=== PATIENT | female | born 1955 | race Two or more races ===

== ENCOUNTER 2022-02-24 18:55 | Emergency (ER) | payer MEDICARE, MEDICAID ==
[~2022-02-24] VITALS: Ht 157.5 cm; Wt 70.3 kg
[2022-02-24 20:17] LABS: Basophils # (auto) 0.1 10 ^3/uL (0-0.2); Basophils % (auto) 2.4 % (0.0-2.0); Eosinophils # (auto) 0.2 10 ^3/uL (0-0.8); Eosinophils % (auto) 2.9 % (0.0-7.0); Hematocrit 32.8 % (36.0-46.0); Hemoglobin 11.3 g/dL (12.2-16.2); Lymphocytes # (auto) 1.6 10 ^3/uL (0.4-5.4); Lymphocytes % (auto) 25.4 % (10.0-50.0); Mean Corpuscular Hemoglobin 31.1 pg (28.0-32.0); Mean Corpuscular Hgb Conc. 34.3 g/dL (32.0-36.0); Mean Corpuscular Volume 90.7 fL (80.0-100.0); Monocytes # (auto) 0.4 10 ^3/uL (0-1.3); Monocytes % (auto) 6.7 % (0.0-12.0); Neutrophils # (auto) 3.9 10 ^3/uL (1.6-8.6); Neutrophils % (auto) 62.6 % (37.0-80.0); Nucleated Red Blood Cells % 0.1 %; Red Blood Cells 3.62 10^6/uL (4.0-5.20); Red Cell Distribution Width 14.6 % (11.8-14.3); White Blood Cell 6.2 10^3/uL (4.4-10.8)
[2022-02-24 20:30] LABS: Albumin 3.8 g/dL (3.4-5.0); Calcium 8.9 mg/dL (8.5-10.1); Potassium 4.1 mmol/L (3.5-5.1)
[2022-02-24 20:33] LABS: BUN/Creatinine Ratio 20.4; Bilirubin, Total 0.7 mg/dL (0.2-1.0); Total Protein 7.8 g/dL (6.4-8.2)
[2022-02-24 20:48] VITALS: BP 149/66
== END 2022-02-25 00:49 | disposition left against medical advice (07) ==
LOC: ER 18:55
DX: R53.1 Weakness (principal); R42 Dizziness and giddiness; M54.50 Low back pain, unspecified; M79.632 Pain in left forearm; M79.631 Pain in right forearm; Z53.21 Procedure and treatment not carried out due to patient leaving prior to being seen by health care provider; W18.39XA Other fall on same level, initial encounter; Y93.89 Activity, other specified; Y92.89 Other specified places as the place of occurrence of the external cause; Y99.8 Other external cause status
CPT/HCPCS: 36415; 80053; 84484; 85025; 93005

== ENCOUNTER 2022-04-08 16:55 | Emergency (ER) | payer MEDICARE, MEDICAID ==
[~2022-04-08] VITALS: Ht 154.9 cm; Wt 54.5 kg
[2022-04-08 18:53] LABS: Basophils # (auto) 0 10 ^3/uL (0-0.2); Basophils % (auto) 0.5 % (0.0-2.0); Eosinophils # (auto) 0.2 10 ^3/uL (0-0.8); Eosinophils % (auto) 2.5 % (0.0-7.0); Hematocrit 34.1 % (36.0-46.0); Hemoglobin 11.1 g/dL (12.2-16.2); Lymphocytes # (auto) 1.8 10 ^3/uL (0.4-5.4); Mean Corpuscular Hemoglobin 29.8 pg (28.0-32.0); Mean Corpuscular Hgb Conc. 32.6 g/dL (32.0-36.0); Mean Corpuscular Volume 91.3 fL (80.0-100.0); Monocytes # (auto) 0.5 10 ^3/uL (0-1.3); Monocytes % (auto) 8.7 % (0.0-12.0); Neutrophils # (auto) 3.6 10 ^3/uL (1.6-8.6); Neutrophils % (auto) 59.3 % (37.0-80.0); Red Blood Cells 3.74 10^6/uL (4.0-5.20); Red Cell Distribution Width 14.6 % (11.8-14.3); White Blood Cell 6.1 10^3/uL (4.4-10.8)
[2022-04-08 18:59] LABS: Urine Bacteria FEW /hpf (None Seen); Urine Blood Negative /uL (Negative); Urine Specific Gravity 1.023 (1.001-1.035); Urine WBC 56 /hpf (0 - 5)
[2022-04-08 19:11] LABS: Albumin 3.7 g/dL (3.4-5.0); Potassium 5.2 mmol/L (3.5-5.1)
[2022-04-08 19:16] LABS: BUN/Creatinine Ratio 24.2; Bilirubin, Total 0.5 mg/dL (0.2-1.0); Total Protein 7.6 g/dL (6.4-8.2)
[2022-04-09 07:58] VITALS: BP 153/96
== END 2022-04-09 08:32 | disposition home or self-care (01) ==
LOC: ER 16:55
DX: R42 Dizziness and giddiness (principal)
CPT/HCPCS: 36415; 80053; 81001; 84443; 84484; 85025; 93005

== ENCOUNTER 2022-11-28 09:10 | Emergency (ER) | payer OTHER, MEDICAID ==
[~2022-11-28] VITALS: Ht 149.9 cm; Wt 55.0 kg
[2022-11-28 09:34] LABS: Basophils # (auto) 0 10 ^3/uL (0-0.2); Basophils % (auto) 0.6 % (0.0-2.0); Eosinophils # (auto) 0.3 10 ^3/uL (0-0.8); Eosinophils % (auto) 5.5 % (0.0-7.0); Hematocrit 39.6 % (36.0-46.0); Hemoglobin 13.3 g/dL (12.2-16.2); Lymphocytes # (auto) 1.4 10 ^3/uL (0.4-5.4); Lymphocytes % (auto) 25.7 % (10.0-50.0); Mean Corpuscular Hemoglobin 29.6 pg (28.0-32.0); Mean Corpuscular Hgb Conc. 33.6 g/dL (32.0-36.0); Mean Corpuscular Volume 88.2 fL (80.0-100.0); Monocytes # (auto) 0.5 10 ^3/uL (0-1.3); Monocytes % (auto) 9.1 % (0.0-12.0); Neutrophils # (auto) 3.3 10 ^3/uL (1.6-8.6); Neutrophils % (auto) 59.1 % (37.0-80.0); Nucleated Red Blood Cells % 0.1 %; Red Blood Cells 4.49 10^6/uL (4.0-5.20); Red Cell Distribution Width 15.9 % (11.8-14.3); White Blood Cell 5.6 10^3/uL (4.4-10.8)
[2022-11-28 09:52] LABS: INR 0.96 (0.9-1.15); Partial Thromboplastin Time 26.7 sec (24.6-33.4)
[2022-11-28 09:58] LABS: Albumin 3.5 g/dL (3.4-5.0); Calcium 8.7 mg/dL (8.5-10.1); Magnesium 2.4 mg/dL (1.6-2.6); Potassium 3.9 mmol/L (3.5-5.1)
[2022-11-28 10:02] LABS: Bilirubin, Total 0.8 mg/dL (0.2-1.0); Total Protein 7.7 g/dL (6.4-8.2)
[2022-11-28] MEDS ORDERED: IOHEXOL 350 MG/ML 100ML IJ ONE (12:30)
[2022-11-28] MEDS ORDERED: AUG875T PO (16:07)
[2022-11-28] MEDS ORDERED: DOXY-286 PO (16:07)
[2022-11-28 16:39] VITALS: BP 147/91
== END 2022-11-28 18:44 | disposition home or self-care (01) ==
LOC: ER 09:10
DX: J18.9 Pneumonia, unspecified organism (principal); R07.2 Precordial pain; I48.91 Unspecified atrial fibrillation; I10 Essential (primary) hypertension; E78.5 Hyperlipidemia, unspecified; E11.9 Type 2 diabetes mellitus without complications; Z20.822 Contact with and (suspected) exposure to COVID-19; Z86.73 Personal history of transient ischemic attack (TIA), and cerebral infarction without residual deficits
CPT/HCPCS: 36415; 71045; 71275; 80053; 83735; 84484; 85025; 85610; 85730; 87426; 93005; 99285; Q9967

== ENCOUNTER 2024-08-14 20:18 | Inpatient (IN) | payer OTHER, MEDICAID ==
[~2024-08-14] VITALS: Ht 149.9 cm; Wt 64.0 kg
[~2024-08-14 20:18] MED LIST: AUG875T PO; DOXY-286 PO
--- NOTE | 2024-08-14 21:08 | ED.PDOC ---
HPI Comments HPI: Poor Historian. 68-year-old female brought in by her daughter for evaluation of a syncope and collapse that happened on . Patient did not seek any medical attention at that time. Patient states she felt dizzy and passed out and fell forward and landed on her face. There was a positive loss of consciousness for at least 15 seconds. Patient did not feel any pain at that time so that she did not seek any medical attention. Patient now complains of some mild posterior cervical neck pain and some weakness and dizziness. Denies any other acute symptoms. Patient is on Plavix and Eliquis. Vitals: Temp: 98.8 F HR: 68 RR: 16 BP: 166/113 02 sat: 96 % on room air PMH: CVA x 3, A-Fib, DM, HTN, HLD PSH: Cholecystectomy Social history: denies tobacco use, denies ETOH use, denies drug use Meds: hydrocodone Allergies: nkda REVIEW OF SYSTEMS: CONSTITUTIONAL: Denies acute: fever, diaphoresis, chills, HEAD: Denies acute: headache, photophobia Eyes: Denies acute: Double vision, vision loss, eye pain, eye discharge. EARS: Denies acute: tinnitus, hearing loss, ear discharge, ear pain, THROAT: Denies acute: sore throat, swelling, difficulty swallowing , pain with swallowing, change in voice. NECK: Denies acute: neck swelling, stiff neck. HEART: Denies acute : chest pain, palpitations, LUNGS: Denies acute: SOB, wheezing, cough, hemoptysis ABDOMEN: Denies acute: abdominal pain, Nausea, Vomiting, diarrhea, melena , hematemesis, hematochezia SKIN: Denies acute: rash, redness, lesions, itchiness. EXTREMITIES: Denies acute: calf pain, numbness, tingling, weakness, denies pain in extremity. Denies acute: Low back pain. Neuro: Denies acute: focal neurological deficit, motor or sensory focal neurological deficit, tremors, seizure like activity, confusion, change in mental status, loss of bowel or bladder function, cauda equina like symptoms. : Denies acute: dysuria, hematuria, flank pain, increase in urinary frequency. PSYCH: Denies acute: hallucination, suicidal ideation, homicidal ideation. FEMALE: Denies acute: abnormal vaginal bleeding, foul odor, unusual discharge. PHYSICAL EXAM: General: no acute distress, awake and alert. Head: normocephalic, noted contusion and bruises in forehead and bilateral cheeks below the eyes. No ha sign. Neck: supple, trachea is midline, no swelling. Cervical spine: Palpation of the posterior midline of the cervical spine reveals no focal swelling, erythema, but some mild nonspecific focal tenderness to palpation. Patient has normal range of motion. Denies associated upper or lower extremity numbness or tingling sensation. Throat: Normal phonation. Eyes:, no erythema, no purulent discharge, no proptosis, no icterus. Heart: regular rate, regular rhythm, no significant murmur appreciated. Lungs: no apparent respiratory distress, Able to speak in full sentences. No wheezing, no rhonchi, no crackles. No stridors Clear to auscultation bilaterally. Abdomen: non tender to palpation, non distended, soft, no guarding, no rebound, + bowel sounds. Neuro: Awake, Alert, oriented to name, self, situation, follows commands GCS=15. Speech is normal. Skin: no petechia, no purpura, no cyanosis, non-pale, not jaundice. Lower extremities: --no - Pitting edema no deformity, no focal swelling, no calf TTP. Makes eye contact. moves all four extremities. Face: no apparent facial droop. PERRLA, EOM-I CN 2-12 are grossly intact, No nystagmus. No nuchal rigidity, Kernig's sign, Brudzinski's sign, no meningeal signs. Chief Complaint: Dizziness Comments Includes but not limited to thyroid disease, encephalopathy, electrolyte abnormality, sepsis, infection, intracranial pathology, drug adverse effects, arrhythmia, kidney insufficiency, ACS, CVA, malignancy, anemia Time Seen by MD: 20:54 Primary Care Provider: unknown Reviewed Notes: Nurses Notes, Medications, Allergies Allergies: Coded Allergies: NO KNOWN ALLERGIES (Unverified , 02/24/22) Home Meds Active Scripts Doxycycline Hyclate (DOXYCYCLINE HYCLATE) 100 Mg Tab, 100 MG PO BID for 10 Days, #20 TAB Prov:FREEMAN CAPELLAN MD 11/28/22 Amoxicillin & Pot Clavulanate (AUGMENTIN TABLET) 875 Mg Tb, 875 MG PO BID for 10 Days, #20 TAB Prov:FREEMAN CAPELLAN MD 11/28/22 Information Source: Patient, Relative Mode of Arrival: Wheelchair Past Medical History PAST MEDICAL HISTORY: AFIB, CVA, DM, High Lipids, HTN 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 Was a procedure done?: No CP Differential Dx Differential Diagnosis: N/A X-Ray, Labs, Meds, VS Vital Signs Date Time Temp Pulse Resp B/P (MAP) Pulse Ox O2 Delivery O2 Flow Rate FiO2 08/14/24 22:44 63 08/14/24 21:23 64 16 167/70 (102) 96 08/14/24 21:10 Room Air* 0 21 08/14/24 20:56 98.8 68 16 166/113 (130) 96 Lab Test 08/14/24 22:42 08/14/24 21:29 Range/Units Troponin I High Sensitivity 23 20 </=34 ng/L White Blood Count 6.1 4.4-10.8 10^3/uL Red Blood Count 4.09 4.0-5.20 10^6/uL Hemoglobin 12.6 12.2-16.2 g/dL Hematocrit 37.2 36.0-46.0 % Mean Corpuscular Volume 91.0 80.0-100.0 fL Mean Corpuscular Hemoglobin 30.8 28.0-32.0 pg Mean Corpuscular Hemoglobin Concent 33.8 32.0-36.0 g/dL Red Cell Distribution Width 15.1 H 11.8-14.3 % Platelet Count 221 140-450 10^3/uL Mean Platelet Volume 8.5 6.9-10.8 fL Neutrophils (%) (Auto) 56.4 37.0-80.0 % Lymphocytes (%) (Auto) 27.6 10.0-50.0 % Monocytes (%) (Auto) 10.2 0.0-12.0 % Eosinophils (%) (Auto) 5.4 0.0-7.0 % Basophils (%) (Auto) 0.4 0.0-2.0 % Neutrophils # (Auto) 3.5 1.6-8.6 10 ^3/uL Lymphocytes # (Auto) 1.7 0.4-5.4 10 ^3/uL Monocytes # (Auto) 0.6 0-1.3 10 ^3/uL Eosinophils # (Auto) 0.3 0-0.8 10 ^3/uL Basophils # (Auto) 0 0-0.2 10 ^3/uL Nucleated Red Blood Cells 0.1 % Prothrombin Time 11.3 9.3-11.8 sec Prothrombin Time INR 1.07 0.9-1.15 Activated Partial Thromboplast Time 30.6 24.5-34.5 SEC Sodium Level 139 136-145 mmol/L Potassium Level 3.6 3.5-5.1 mmol/L Chloride Level 104 98-107 mmol/L Carbon Dioxide Level 28 20-31 mmol/L Anion Gap 7 5-15 Blood Urea Nitrogen 13 9-23 mg/dL Creatinine 1.09 H 0.550-1.02 mg/dL Glomerular Filtration Rate Calc 55 >90 mL/min BUN/Creatinine Ratio 11.9 10.0-20.0 Serum Glucose 201 H 74-106 mg/dL Lactic Acid Level 1.0 0.4-2.0 mmol/L Calcium Level 9.9 8.7-10.4 mg/dL Magnesium Level 2.0 1.6-2.6 mg/dL Total Bilirubin 0.8 0.2-1.0 mg/dL Aspartate Amino Transferase (AST) 26 13-40 U/L Alanine Aminotransferase (ALT) 20 7-40 U/L Alkaline Phosphatase 154 H 46-116 U/L Creatine Kinase 105 34-145 U/L Total Protein 7.5 5.7-8.2 g/dL Albumin 4.0 3.2-4.8 g/dL Current Medications Medications (Trade) Dose Ordered Sig/Ac Route Start Time Stop Time Status Last Admin Labetalol HCl (Labetalol HCl) 5 mg ONCE ONCE IV 08/14/24 21:15 08/14/24 21:16 DC 08/14/24 23:[address] [address] Ph: [phone] DIAGNOSTIC IMAGING Diagnostic Imaging Report : [id number] Signed PATIENT: JHOANA LAI ACCT: [id number] UNIT: [id number] : 1955 LOC: TELE ROOM / BED: [facility] / A AGE / SEX: 68 / F ADM STATUS: ADM IN SERVICE 54 ORDERING PHYSICIAN: CHRISTIAN MACKEY DO PROCEDURE(s): HWOCT - HEAD WITHOUT CONTRAST REASON: syncope and collaps/ head injury ORDER NUMBER(s): [id number], ACCESSION NUMBER(s): [id number] CLINICAL HISTORY: syncope and collaps/ head injury TECHNIQUE: Helical imaging carried out from skull base to vertex without intravenous contrast. This exam was performed according to our departmental dose optimization program. Up-to-date CT equipment and radiation dose reduction techniques are utilized as appropriate. CTDIVol: [CTDIvol] mGy DLP: 886.11 mGy-cm WID: COMPARISON: None FINDINGS: Mild cerebral volume loss with concordant prominence of the subarachnoid spaces and ventricles. There is moderate patchy and confluent white matter hypodensities consistent with nonspecific white matter disease. There are small chronic left cerebellar infarcts. Small chronic infarct in the right occipital lobe Chronic lacunar infarcts in the bilateral caudate bodies, bilateral basal ganglia, and bilateral thalami. There is no midline shift or mass effect. The lindsey white matter interfaces are otherwise maintained. The basal cisterns are patent. There is no evidence of acute intracranial hemorrhage or extra-axial fluid collection. Small left masto id air cell effusion. The right mastoid air cells and visualized paranasal sinuses are well-aerated. Prior ocular lens replacement1 IMPRESSION: 1. Small multifocal contusion/hematomas in the right frontal scalp . 2. No acute intracranial abnormality. 3. Mild cerebral volume loss and moderate chronic microvascular ischemic change. 4. Chronic lacunar infarcts in the bilateral caudate bodies, bilateral basal ganglia and bilateral thalami. 5. Small chronic infarcts in the right occipital lobe and left cerebellum. ATED BY: LENNY GUTIÉRREZ MD DICTATED DATE/TIME: 08/14/242352 SIGNED BY: LENNY GUTIÉRREZ MD SIGNED DATE/TIME: 08/14/242352 CC: [place] [id number] Ph: [phone] DIAGNOSTIC IMAGING Diagnostic Imaging Report : [id number] Signed PATIENT: MING,JHOANA ACCT: [id number] UNIT: [id number] : 1955 LOC: TELE ROOM / BED: [address] [place] [address] AGE / SEX: 68 / F ADM STATUS: ADM IN SERVICE 54 ORDERING PHYSICIAN: CHRISTIAN MACKEY DO PROCEDURE(s): CXRP - CHEST PORTABLE REASON: syncope and collaps/ head injury ORDER NUMBER(s): [id number], ACCESSION NUMBER(s): [id number] EXAM: XY CHEST PORTABLE CLINICAL HISTORY: syncope and collaps/ head injury TECHNIQUE: Single AP view of the chest WID: COMPARISON: XY CHEST PORTABLE on DOS: 11/28/22 FINDINGS: Lines and tubes: None Chest: The heart size and pulmonary vasculature is within normal limits. Calcified plaque projects over the aortic arch. No pleural effusion, pneumothorax, or consolidation. Linear scarring in the left lung base The osseous structures are grossly intact. Multilevel thoracic spondylosis IMPRESSION: No acute cardiopulmonary abnormality. ATED BY: LENNY GUTIÉRREZ MD DICTATED DATE/TIME: 08/14/242349 SIGNED BY: LENNY GUTIÉRREZ MD SIGNED DATE/TIME: 08/14/242349 CC: [place] [id number] Ph: [phone] DIAGNOSTIC IMAGING Diagnostic Imaging Report : [id number] Signed PATIENT: JHOANA LAI ACCT: [id number] UNIT: [id number] : 1955 LOC: TELE ROOM / BED: [address] [place] [address] AGE / SEX: 68 / F ADM STATUS: ADM IN SERVICE 52 ORDERING PHYSICIAN: CHRISTIAN MACKEY DO PROCEDURE(s): CS2 - CERVICAL WITHOUT CONTRAST REASON: syncope and collaps/ head injury ORDER NUMBER(s): [id number], ACCESSION NUMBER(s): [id number] CLINICAL HISTORY: syncope and collaps/ head injury TECHNIQUE: CT exam of the cervical spine was performed without intravenous contrast. This exam was performed according to our departmental dose optimization program. Up-to-date CT equipment and radiation dose reduction techniques are utilized as appropriate. CTDI: [CTDIvol] DLP: 538.45 WID: COMPARISON: None FINDINGS: Patient is edentulous. Normal alignment of the atlantooccipital interval. Atlantoaxial joint is maintained. Alignment is preserved. Vertebral body heights are maintained. There is no acute fracture. No high-grade neural foraminal or spinal stenosis There is a left mastoid air cell effusion. Calcified plaque in the aortic arch. The posterior paraspinal soft tissues are unremarkable. No cervical lymphadenop athy or mass. IMPRESSION: No acute fracture or traumatic malalignment ATED BY: LENNY GUTIÉRREZ MD DICTATED DATE/TIME: 08/15/2414 SIGNED BY: LENNY GUTIÉRREZ MD SIGNED DATE/TIME: 08/15/2414 CC: Time of 1ST Reevaluation: 23:53 (As of this minute, all imaging studies ordered by myself have not been read yet. We checked and we were informed that they images were never sent to the radiologist.) Reevaluation 1ST: Unchanged Patient Education/Counseling: Diagnosis, Treatment Family Education/Counseling: Diagnosis, Treatment Comments Patient presented with the above HPI.---dizziness/ syncope---workup was initiated. patient was found with the above mentioned diagnosis. Patient was given: Labetalol was ordered for hypertension in the setting of suspected head bleed. Patient ED course and VS have been stabilized. Patient has been reassessed in the ED and remained in a stable condition. Pertinent incidental findings were discussed with the patient and/or family. Patient/family voices understanding and is agreeable with plan. Patient has been observed in the ED adequate length of time to insure improvement/stability. patient was admitted to the medicine team for further evaluation and treatment of their presentation. All the reports of any imaging studies that were ordered by myself were reviewed by myself. Departure 1 Departure Time of Disposition: 21:07 Impression: Primary Impression: Syncope and collapse Additional Impressions: Closed head injury Dizziness Disposition: ADMITTED INPATIENT Admit to: [facility] Condition: Guarded Discharged With: Self Critical Care Note Critical Care Time?: Yes (35 min-critical care time only) I personally scribed for CHRISTIAN MACKEY DO ([facility]) on 08/14/24 at 21:59. Electronically submitted by Jin Vieyra ([email or web address]). I personally scribed for CHRISTIAN MACKEY DO ([facility] on 08/14/24 at 23:11. Electronically submitted by David Joseph ([email or web address]). CHRISTIAN MACKEY DO Aug 14, 2024 21:08
[2024-08-14 21:49] LABS: Basophils # (auto) 0 10 ^3/uL (0-0.2); Basophils % (auto) 0.4 % (0.0-2.0); Eosinophils # (auto) 0.3 10 ^3/uL (0-0.8); Eosinophils % (auto) 5.4 % (0.0-7.0); Hematocrit 37.2 % (36.0-46.0); Hemoglobin 12.6 g/dL (12.2-16.2); Lymphocytes # (auto) 1.7 10 ^3/uL (0.4-5.4); Lymphocytes % (auto) 27.6 % (10.0-50.0); Mean Corpuscular Hemoglobin 30.8 pg (28.0-32.0); Mean Corpuscular Hgb Conc. 33.8 g/dL (32.0-36.0); Monocytes # (auto) 0.6 10 ^3/uL (0-1.3); Monocytes % (auto) 10.2 % (0.0-12.0); Neutrophils # (auto) 3.5 10 ^3/uL (1.6-8.6); Neutrophils % (auto) 56.4 % (37.0-80.0); Nucleated Red Blood Cells % 0.1 %; Platelet Count (auto) 221 10^3/uL (140-450); Red Blood Cells 4.09 10^6/uL (4.0-5.20); Red Cell Distribution Width 15.1 % (11.8-14.3); White Blood Cell 6.1 10^3/uL (4.4-10.8)
[2024-08-14 22:03] LABS: INR 1.07 (0.9-1.15); Partial Thromboplastin Time 30.6 SEC (24.5-34.5); Prothrombin Time 11.3 sec (9.3-11.8)
[2024-08-14 22:06] LABS: Alanine Aminotransferase 20 U/L (7-40); Alkaline Phosphatase 154 U/L (46-116); Anion Gap 7 (5-15); Aspartate Aminotransferase 26 U/L (13-40); BUN/Creatinine Ratio 11.9 (10.0-20.0); Bilirubin, Total 0.8 mg/dL (0.2-1.0); Blood Urea Nitrogen 13 mg/dL (9-23); Calcium 9.9 mg/dL (8.7-10.4); Carbon Dioxide 28 mmol/L (20-31); Chloride 104 mmol/L (98-107); Creatine Kinase IFCC 105 U/L (34-145); Glucose 201 mg/dL (74-106); Potassium 3.6 mmol/L (3.5-5.1); Sodium 139 mmol/L (136-145)
[2024-08-14 22:07] LABS: Total Protein 7.5 g/dL (5.7-8.2)
--- NOTE | 2024-08-14 22:53 | DVHHP2 ---
History of Present Illness Reason for Visit: Syncope and collapse History of Present Illness The patient is a 68-year-old female with past medical history of CVA, AFib, DM, hypertension, and hyperlipidemia who presented to [facility] ED for evaluation of syncopal episode. As reported by son, patient had a fall 3 days ago landing on her face without medical attention. Patient sustained facial bruises, felt dizzy, loss of consciousness for at least 15 seconds, getting worse today that prompted this visit. Patient was seen and evaluated in the ED, laboratory data shows WBC 6.1, platelets 221, sodium 139, potassium 3.6, BUN 13, creatinine 1.09, glucose 201, troponin 20, blood pressure 166/113 trending down to 135/64, pulse 68, temperature 98.6 F, O2 saturation 96% on room air. Please see medication orders section in the computer. Head CT revealing small multifocal contusion/hematoma in the right frontal scalp, no acute intracranial abnormality. On my assessment, patient denied chest pain, no headache, no dizziness, no diaphoresis, no shortness of breath, no nausea, no vomiting, no fever, no chills. Patient was admitted for further evaluation and medical management. Past Medical History CVA x 3, A-Fib, DM, HTN, HLD Past Surgical History Cholecystectomy Family History Reviewed, noncontributory to the management of this case. Past Social History The patient lives at home, denies smoking, alcohol or illicit drugs abuse. Review of Systems Constitutional: Yes: Weakness; No: Fever, Chills, Sweats, Malaise, Other Eyes: No: Pain, Vision change, Conjunctivae inflammation, Eyelid inflammation, Other, Redness ENT: No: Ear pain, Ear discharge, Nose pain, Nose discharge, Nose congestion, Mouth pain, Mouth swelling, Throat pain, Throat swelling, Other Respiratory: No: Cough, Dry, Shortness of breath, SOB with excertion, Wheezing, Hemoptysis, Pleuritic Pain, Sputum, Wheezing, Other Cardiovascular: Other (Syncope); No: Chest Pain, Palpitations, Orthopnea, Paroxysmal Noc. Dyspnea, Edema, Lt Headedness Gastrointestinal: No: Nausea, Vomiting, Abdominal Pain, Diarrhea, Constipation, Melena, Hematochezia, Other Genitourinary: No Dysuria, No Frequency, No Incontinence, No Hematuria, No Retention, No Other Musculoskeletal: No: other, neck pain, shoulder pain, arm pain, back pain, hand pain, leg pain, foot pain Skin: No: Rash, Lesions, Jaundice, Bruising, Other Neurological: Other (Contusion/hematoma); No: Weakness, Numbness, Incoordination, Change in speech, Confusion, Seizures Allergies: Coded Allergies: NO KNOWN ALLERGIES (Unverified , 02/24/22) Exam Vital Signs Vital Signs Date Time Temp Pulse Resp B/P (MAP) Pulse Ox O2 Delivery O2 Flow Rate FiO2 08/14/24 20:56 98.8 68 16 166/113 (130) 96 General Appearance: Alert, Oriented X3, Cooperative, No acute distress HEENT: Atraumatic, PERRLA, EOMI, Mucous membr. moist/pink Respiratory: Clear to auscultation, Normal air movement Cardiovascular: Regular rate, Normal S1, Normal S2, No murmurs Abdominal: Normal bowel sounds, Soft, No tenderness, No hepatospenomegaly, No masses Extremities: No clubbing, No cyanosis, No edema, Normal pulses, No tenderness/swelling Skin: No rashes, No breakdown, No significant lesion Neuro: Normal speech, Normal tone, Sensation intact, Cranial nerves 3-12 NL, Reflexes 2+, Other (Generalized weakness) Psych/Mental Status: Mental status NL, Mood NL Labs/Xrays Labs Test 08/14/24 22:42 08/14/24 21:29 Range/Units White Blood Count 6.1 4.4-10.8 10^3/uL Red Blood Count 4.09 4.0-5.20 10^6/uL Hemoglobin 12.6 12.2-16.2 g/dL Hematocrit 37.2 36.0-46.0 % Mean Corpuscular Volume 91.0 80.0-100.0 fL Mean Corpuscular Hemoglobin 30.8 28.0-32.0 pg Mean Corpuscular Hemoglobin Concent 33.8 32.0-36.0 g/dL Red Cell Distribution Width 15.1 H 11.8-14.3 % Platelet Count 221 140-450 10^3/uL Mean Platelet Volume 8.5 6.9-10.8 fL Neutrophils (%) (Auto) 56.4 37.0-80.0 % Lymphocytes (%) (Auto) 27.6 10.0-50.0 % Monocytes (%) (Auto) 10.2 0.0-12.0 % Eosinophils (%) (Auto) 5.4 0.0-7.0 % Basophils (%) (Auto) 0.4 0.0-2.0 % Neutrophils # (Auto) 3.5 1.6-8.6 10 ^3/uL Lymphocytes # (Auto) 1.7 0.4-5.4 10 ^3/uL Monocytes # (Auto) 0.6 0-1.3 10 ^3/uL Eosinophils # (Auto) 0.3 0-0.8 10 ^3/uL Basophils # (Auto) 0 0-0.2 10 ^3/uL Nucleated Red Blood Cells 0.1 % Prothrombin Time 11.3 9.3-11.8 sec Prothrombin Time INR 1.07 0.9-1.15 Activated Partial Thromboplast Time 30.6 24.5-34.5 SEC Sodium Level 139 136-145 mmol/L Potassium Level 3.6 3.5-5.1 mmol/L Chloride Level 104 98-107 mmol/L Carbon Dioxide Level 28 20-31 mmol/L Anion Gap 7 5-15 Blood Urea Nitrogen 13 9-23 mg/dL Creatinine 1.09 H 0.550-1.02 mg/dL Glomerular Filtration Rate Calc 55 >90 mL/min BUN/Creatinine Ratio 11.9 10.0-20.0 Serum Glucose 201 H 74-106 mg/dL Lactic Acid Level 1.0 0.4-2.0 mmol/L Calcium Level 9.9 8.7-10.4 mg/dL Magnesium Level 2.0 1.6-2.6 mg/dL Total Bilirubin 0.8 0.2-1.0 mg/dL Aspartate Amino Transferase (AST) 26 13-40 U/L Alanine Aminotransferase (ALT) 20 7-40 U/L Alkaline Phosphatase 154 H 46-116 U/L Creatine Kinase 105 34-145 U/L Total Protein 7.5 5.7-8.2 g/dL Albumin 4.0 3.2-4.8 g/dL PATIENT: JHOANA LAI ACCT: [id number] UNIT: [id number] : 1955 LOC: [facility] ROOM / BED: [address] [place] [address] AGE / SEX: 68 / F ADM STATUS: ADM IN SERVICE 52 ORDERING PHYSICIAN: CHRISTIAN MACKEY DO PROCEDURE(s): HWOCT - HEAD WITHOUT CONTRAST REASON: syncope and collaps/ head injury ORDER NUMBER(s): [id number], ACCESSION NUMBER(s): [id number] CLINICAL HISTORY: syncope and collaps/ head injury TECHNIQUE: Helical imaging carried out from skull base to vertex without intravenous contrast. This exam was performed according to our departmental dose optimization program. Up-to-date CT equipment and radiation dose reduction techniques are utilized as appropriate. CTDIVol: [CTDIvol] mGy DLP: 886.11 mGy-cm WID: COMPARISON: None FINDINGS: Mild cerebral volume loss with concordant prominence of the subarachnoid spaces and ventricles. There is moderate patchy and confluent white matter hypodensities consistent with nonspecific white matter disease. There are small chronic left cerebellar infarcts. Small chronic infarct in the right occipital lobe Chronic lacunar infarcts in the bilateral caudate bodies, bilateral basal ganglia, and bilateral thalami. There is no midline shift or mass effect. The lindsey white matter interfaces are otherwise maintained. The basal cisterns are patent. There is no evidence of acute intracranial hemorrhage or extra-axial fluid collection. Small left mastoid air cell effusion. The right mastoid air cells and visualized paranasal sinuses are well-aerated. Prior ocular lens replacement1 IMPRESSION: 1. Small multifocal contusion/hematomas in the right frontal scalp. 2. No acute intracranial abnormality. 3. Mild cerebral volume loss and moderate chronic microvascular ischemic change. 4. Chronic lacunar infarcts in the bilateral caudate bodies, bilateral basal ganglia and bilateral thalami. 5. Small chronic infarcts in the right occipital lobe and left cerebellum. ORDERING PHYSICIAN: CHRISTIAN MACKEY DO PROCEDURE(s): CXRP - CHEST PORTABLE REASON: syncope and collaps/ head injury ORDER NUMBER(s): [id number], ACCESSION NUMBER(s): [id number] EXAM: XY CHEST PORTABLE CLINICAL HISTORY: syncope and collaps/ head injury TECHNIQUE: Single AP view of the chest WID: COMPARISON: XY CHEST PORTABLE on DOS: 11/28/22 FINDINGS: Lines and tubes: None Chest: The heart size and pulmonary vasculature is within normal limits. Calcified plaque projects over the aortic arch. No pleural effusion, pneumothorax, or consolidation. Linear scarring in the left lung base The osseous structures are grossly intact. Multilevel thoracic spondylosis IMPRESSION: No acute cardiopulmonary abnormality. ORDERING PHYSICIAN: CHRISTIAN MACKEY DO PROCEDURE(s): CS2 - CERVICAL WITHOUT CONTRAST REASON: syncope and collaps/ head injury ORDER NUMBER(s): [id number], ACCESSION NUMBER(s): [id number] CLINICAL HISTORY: syncope and collaps/ head injury TECHNIQUE: CT exam of the cervical spine was performed without intravenous contrast. This exam was performed according to our departmental dose optimization program. Up-to-date CT equipment and radiation dose reduction techniques are utilized as appropriate. CTDI: [CTDIvol] DLP: 538.45 WID: COMPARISON: None FINDINGS: Patient is edentulous. Normal alignment of the atlantooccipital interval. Atlantoaxial joint is maintained. Alignment is preserved. Vertebral body heights are maintained. There is no acute fracture. No high-grade neural foraminal or s sejal stenosis There is a left mastoid air cell effusion. Calcified plaque in the aortic arch. The posterior paraspinal soft tissues are unremarkable. No cervical lymphadenopathy or mass. IMPRESSION: No acute fracture or traumatic malalignment. Assessment/Plan Assessment/Plan Syncope and collapse Closed head injury Generalized weakness Plan 1. Admit to telemetry unit 2. Breathing treatment 3. Pain control management 4. Management of fluids and electrolytes 5. Consultation for hospitalist/neurology 6. Diagnostic tests head CT 7. DVT prophylaxis on SCDs 8. Repeat labs CBC, CMP in a.m. 9. Continue with current medical management 10. Treatment plan discussed with patient and RN. Patient verbalized understanding. Plan discussed with: Patient, Other (RN) Problem List: (1) Syncope and collapse (2) Closed head injury (3) Generalized weakness Date of Service: Aug 14, 2024 Billing Provider: MAKAYLA GOULD DNP Common Visit Codes: [id number] INP/OBS CARE (HIGH) MAKAYLA GOULD DNP Aug 14, 2024 22:53
[2024-08-14] MEDS ORDERED: HYDROcodone-ACET 5/325MG TAB PO PRN (23:00)
[2024-08-14] MEDS ORDERED: DOCUSATE SOD 100 MG CAP PO PRN (23:00)
[2024-08-14] MEDS ORDERED: MORPHINE SULFATE INJ 2 MG/ml SYRG IV PRN (23:00)
[2024-08-14] MEDS ORDERED: ONDANSETRON HCL 4 MG/2 ML VIAL IV PRN (23:00)
[2024-08-14] MEDS ORDERED: ACETAMINOPHEN 325 MG TAB PO PRN (23:00)
[2024-08-14] MEDS ORDERED: NITROGLYCERIN 0.4 MG SL TAB SL PRN (23:00)
[2024-08-14] MEDS ORDERED: DEXTROSE (50%) 50ML SYRG IV PRN (23:00)
[2024-08-14] MEDS ORDERED: MECLIZINE HCL 25 MG TAB PO PRN (23:00)
[2024-08-14] MEDS: LABETALOL HCL 20 MG/4 ML VL IV ONE (23:39)
--- NOTE | 2024-08-14 23:49 | ECG ---
[facility] Test Date: 2024-08-14 Test Time: 23:41:12 Pat Name: JHOANA LAI Department: ED Room: 0292T Gender: F [employer]/Mechanic: MACRINA : 1955 Requested By: CHRISTIAN MACKEY Order Number: [id number] Reading MD: León Dueñas Measurements Intervals [place] Rate: 62 P: 16 RI: 172 QRS: 3 QRSD: 95 T: 0 QT: 416 QTc: 423 Interpretive Statements Sinus rhythm Low voltage, precordial leads Anteroseptal infarct, old Nonspecific T abnormalities, lateral leads Electronically Signed On 08-16-2024 16:17:00 PST by León Dueñas Please click the below link to view image of tracing.
--- NOTE | 2024-08-14 23:52 | DVH ---
EXAM: XY CHEST PORTABLE CLINICAL HISTORY: syncope and collaps/ head injury TECHNIQUE: Single AP view of the chest WID: COMPARISON: XY CHEST PORTABLE on DOS: 11/28/22 FINDINGS: Lines and tubes: None Chest: The heart size and pulmonary vasculature is within normal limits. Calcified plaque projects over the aortic arch. No pleural effusion, pneumothorax, or consolidation. Linear scarring in the left lung base The osseous structures are grossly intact. Multilevel thoracic spondylosis IMPRESSION: No acute cardiopulmonary abnormality.
--- NOTE | 2024-08-14 23:56 | DVH ---
CLINICAL HISTORY: syncope and collaps/ head injury TECHNIQUE: Helical imaging carried out from skull base to vertex without intravenous contrast. This e xam was performed according to our departmental dose optimization program. Up-to-date CT equipment an d radiation dose reduction techniques are utilized as appropriate. CTDIVol: [CTDIvol] mGy DLP: 886.11 mGy-cm WID: COMPARISON: None FINDINGS: Mild cerebral volume loss with concordant prominence of the subarachnoid spaces and ventricles. There is moderate patchy and confluent white matter hypodensities consistent with nonspecific white matter disease. There are small chronic left cerebellar infarcts. Small chronic infarct in the right occipi tiara lobe Chronic lacunar infarcts in the bilateral caudate bodies, bilateral basal ganglia, and bilat eral thalami. There is no midline shift or mass effect. The lindsey white matter interfaces are otherwise maintained. The basal cisterns are patent. There is no evidence of acute intracranial hemorrhage or extra-axial fluid collection. Small left mastoid air cell effusion. The right mastoid air cells and visualized pa ranasal sinuses are well-aerated. Prior ocular lens replacement1 IMPRESSION: 1. Small multifocal contusion/hematomas in the right frontal scalp . 2. No acute intracranial abnormality. 3. Mild cerebral volume loss and moderate chronic microvascular ischemic change. 4. Chronic lacunar infarcts in the bilateral caudate bodies, bilateral basal ganglia and bilateral th roderick. 5. Small chronic infarcts in the right occipital lobe and left cerebellum.
--- NOTE | 2024-08-15 00:18 | DVH ---
CLINICAL HISTORY: syncope and collaps/ head injury TECHNIQUE: CT exam of the cervical spine was performed without intravenous contrast. This exam was pe rformed according to our departmental dose optimization program. Up-to-date CT equipment and radiatio n dose reduction techniques are utilized as appropriate. CTDI: [CTDIvol] DLP: 538.45 WID: COMPARISON: None FINDINGS: Patient is edentulous. Normal alignment of the atlantooccipital interval. Atlantoaxial joint is maint ained. Alignment is preserved. Vertebral body heights are maintained. There is no acute fracture. N o high-grade neural foraminal or spinal stenosis There is a left mastoid air cell effusion. Calcified plaque in the aortic arch. The posterior paraspi nal soft tissues are unremarkable. No cervical lymphadenopathy or mass. IMPRESSION: No acute fracture or traumatic malalignment
[2024-08-15] MEDS: SODIUM CHLORIDE 0.9% 1,000 ML IV SCH (00:36)
[2024-08-15 04:14] LABS: Urine Bacteria None Seen /hpf (None Seen)
[2024-08-15 05:10] LABS: Urine Blood Negative /uL (Negative); Urine Clarity Clear (Clear); Urine Color Light-Yellow (Yellow); Urine Protein, UAD 2+ (Negative); Urine Specific Gravity 1.015 (1.001-1.035); Urine Urobilinogen Normal (Negative); Urine WBC 15 /hpf (0 - 5); Urine pH 6.5 (5.0-9.0)
[2024-08-15 05:22] LABS: Basophils # (auto) 0 10 ^3/uL (0-0.2); Basophils % (auto) 0.3 % (0.0-2.0); Eosinophils # (auto) 0.3 10 ^3/uL (0-0.8); Eosinophils % (auto) 5.1 % (0.0-7.0); Hematocrit 34.4 % (36.0-46.0); Hemoglobin 11.8 g/dL (12.2-16.2); Lymphocytes # (auto) 1.9 10 ^3/uL (0.4-5.4); Lymphocytes % (auto) 37.6 % (10.0-50.0); Mean Corpuscular Hemoglobin 31.1 pg (28.0-32.0); Mean Corpuscular Hgb Conc. 34.3 g/dL (32.0-36.0); Mean Corpuscular Volume 90.6 fL (80.0-100.0); Monocytes # (auto) 0.5 10 ^3/uL (0-1.3); Monocytes % (auto) 10.4 % (0.0-12.0); Neutrophils # (auto) 2.3 10 ^3/uL (1.6-8.6); Neutrophils % (auto) 46.6 % (37.0-80.0); Nucleated Red Blood Cells % 0.1 %; Platelet Count (auto) 193 10^3/uL (140-450); Red Blood Cells 3.79 10^6/uL (4.0-5.20); Red Cell Distribution Width 14.6 % (11.8-14.3); White Blood Cell 4.9 10^3/uL (4.4-10.8)
[2024-08-15 05:38] LABS: Alanine Aminotransferase 17 U/L (7-40); Albumin 3.4 g/dL (3.2-4.8); Alkaline Phosphatase 118 U/L (46-116); Anion Gap 8 (5-15); Aspartate Aminotransferase 22 U/L (13-40); BUN/Creatinine Ratio 13.5 (10.0-20.0); Bilirubin, Total 0.7 mg/dL (0.2-1.0); Blood Urea Nitrogen 13 mg/dL (9-23); Calcium 9.3 mg/dL (8.7-10.4); Carbon Dioxide 27 mmol/L (20-31); Chloride 107 mmol/L (98-107); Glucose 146 mg/dL (74-106); Potassium 3.4 mmol/L (3.5-5.1); Sodium 142 mmol/L (136-145); Total Protein 6.3 g/dL (5.7-8.2)
[2024-08-15] MEDS: ACCU-CHEK COMFORT CURVE STRIP VI SCH (06:30)
[2024-08-15] MEDS: InsuLIN REG 1unit/0.01ml Soln (100units/ml) SC SCH ×2 (06:32→21:49)
--- NOTE | 2024-08-15 09:01 | DVHINCON2 ---
Date of service: Aug 15, 2024 Referring Physician Betty Reason for Consultation Contusion History of Present Illness This is an urgent consultation Ms. Cameron is a 68 years old right-handed female with a history of hypertension, diabetes, dyslipidemia, atrial fibrillation, multiple strokes, she came to the [facility] on 08/14/2024 with a chief company of syncopal event, at this time, she was alert and fully oriented, she provided the following history with her daughter's interpretation Syncope Onset: 08/10/2024 Positive cause the condition: Unknown Symptoms: When she was standing on 08/10 24, she developed dizziness/spinning sensation, followed by fell down onto her face with loss of consciousness for 2 seconds (her daughter: 15 seconds), and she claims she was conscious to everything on waking up (daughter: She was mentally normal soon after she woke up). She had headache in the affected head area, otherwise denied associated chest pain, nausea, increased sweating. She denied similar events previously Test result: CT head, 08/14/2024: 1. Small multifocal contusion/hematomas in the right frontal scalp . 2. No acute intracranial abnormality. 3. Mild cerebral volume loss and moderate chronic microvascular ischemic change. 4. Chronic lacunar infarcts in the bilateral caudate bodies, bilateral basal ganglia and bilateral thalami. 5. Small chronic infarcts in the right occipital lobe and left cerebellum Multiple strokes Onset: See below Possible cause of the condition: Hypertension, diabetes, dyslipidemia, AFib Symptoms: In 2007, she developed spinning sensation and bilateral occipital headache, the patient was seen in the local hospital and she was said to have stroke, the patient was recommended to take aspirin on discharge In [id number], she had left arm weakness, the patient was seen in the local hospital and was said to have stroke In 2014, she developed bilateral occipital headache, the patient was seen in the local hospital and was said to have stroke. After the stroke in 2014, the patient was has left-sided weakness Previous evaluation: See above. She sees Luis Alberto Chahal, a local neurologist Treatment: Aspirin 325 mg daily (hold by the family), Plavix 75 mg daily, Eliquis 5 mg b.i.d. Previous treatment: Aspirin 81 mg daily, Plavix 75 mg daily, Eliquis 5 mg daily Brain aneurysm Onset: 10/2023 Possible cause the condition: Unknown Symptoms: Asymptomatic. But because of the left-sided weakness after 3rd stroke, Dr. 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 The aspirin was increased from 81 mg daily to prevent blood clot from happening), Plavix 75 mg daily, Eliquis 5 mg b.i.d. Urinalysis, 08/15/2024: WBC: 15, urine leukocyte esterase: Trace CBC, 08/14/2024: Unremarkable CMP, 08/15/2024: Unremarkable CT head, 08/14/2024: 1. Small multifocal contusion/hematomas in the right frontal scalp . 2. No acute intracranial abnormality. 3. Mild cerebral volume loss and moderate chronic microvascular ischemic change. 4. Chronic lacunar infarcts in the bilateral caudate bodies, bilateral basal ganglia and bilateral thalami. 5. Small chronic infarcts in the right occipital lobe and left cerebellum CT C-spine, 08/14/2024: No acute fracture or traumatic malalignment Past Medical History Hypertension, dyslipidemia, diabetes, atrial fibrillation (diagnosed in - 2020), multiple strokes Past Surgical History Cholecystectomy, stent to the right neck Family History Hypertension, diabetes Social History She was a non-smoker. She was no history of alcohol or recreational substance abuse Allergies: Coded Allergies: NO KNOWN ALLERGIES (Unverified , 02/24/22) Home Meds Active Scripts Doxycycline Hyclate (DOXYCYCLINE HYCLATE) 100 Mg Tab, 100 MG PO BID for 10 Days, #20 TAB Prov:FREEMAN CAPELLAN MD 11/28/22 Amoxicillin & Pot Clavulanate (AUGMENTIN TABLET) 875 Mg Tb, 875 MG PO BID for 10 Days, #20 TAB Prov:FREEMAN CAPELLAN MD 11/28/22 Current Medications Current Medications Medications (Trade) Dose Ordered Sig/Ac Route PRN Reason Start Time Stop Time Status Last Admin Lisinopril (Zestril Tablet) 2.5 mg DAILY PO 08/15/24 10:00 Amlodipine Besylate (Norvasc Tablet) 5 mg DAILY PO 08/15/24 10:00 Aspirin 81 mg DAILY PO 08/15/24 10:00 Hydralazine HCl (Apresoline Injection) 10 mg Q6HP PRN IV SBP>150 08/14/24 23:00 Meclizine HCl (Antivert Tablet) 25 mg [id number] PRN PO DIZZINESS 08/14/24 23:00 Diagnostic Test (Pha) (Accu-Chek Comfort Curve T) 1 strip ACHS 08/15/24 07:00 08/15/24 06:30 Insulin Human Regular (InsuLIN R) HS SC 08/15/24 22:00 Insulin Human Regular (InsuLIN R) AC SC 08/15/24 07:00 08/15/24 06:32 Dextrose 50 ml UD PRN IV Blood Sugar LESS THAN 60 08/14/24 23:00 Sodium Chloride 1,000 ml @ 60 mls/hr [id number] IV 08/14/24 23:00 08/15/24 00:36 Acetaminophen/ Hydrocodone Bitart ([place] 5/325MG Tab) 1 tab Q4HP PRN PO MODERATE PAIN (4-6 PAIN SCALE) 08/14/24 23:00 Ondansetron HCl (Zofran) 4 mg Q4HP PRN IV NAUSEA / VOMITING 08/14/24 23:00 Docusate Sodium (Colace Capsule) 100 mg BIDPRN PRN PO FOR CONSTIPATION 08/14/24 23:00 Acetaminophen (Tylenol Tablet) 650 mg Q6HP PRN PO PAIN SCALE 1-3 OR TEMP>100.4 08/14/24 23:00 Nitroglycerin (Ntrostat Sublingual) 0.4 mg Q5MINP PRN SL FOR CHEST PAIN 08/14/24 23:00 Morphine Sulfate 2 mg Q30M PRN IV FOR CHEST PAIN 08/14/24 23:00 Review of Systems As above, the other systems are negative Vital Signs Vital Signs Date Time Temp Pulse Resp B/P (MAP) Pulse Ox O2 Delivery O2 Flow Rate FiO2 08/15/24 08:28 61 13 158/71 (100) 97 08/14/24 21:10 Room Air* 0 21 08/14/24 20:56 98.8 Physical Exam GENERAL EXAM: General: the patient is well developed and nourished. No acute distress. HEENT: Bruise in bilateral frontal and periorbital regions, neck is supple, no carotid bruits. No mass. RESPIRATORY: Normal respiratory effort with symmetrical lung expansion. Lungs clear to auscultation. CARDIOVASCULAR: Regular rate and rhythm with no murmurs. S1, S2. ABDOMEN: Soft, nontender, normal bowel sound NEUROLOGICAL: MENTAL STATUS: Awake and alert. Oriented to person, place, time and general circumstances. Able to give personal history. SPEECH, LANGUAGE, HIGHER CORTICAL FUNCTION: no aphasia or dysathria. CRANIAL NERVES: #2: Intact visual dunn to confrontation. The optic discs were sharp #3,4,6: Pupils are equal, round and reactive. EOMs full and conjugate. No nystagmus. #5: Facial sensation intact in all three divisions bilaterally. Mandibular strength intact. #7: Facial muscles symmetrical and strength intact. #8: Hearing grossly normal to voice. #9,10: Uvula and soft palate rise in the midline. Swallow and voice are normal. #11: Trapezius and sternomastoid strength intact bilaterally. #12: Tongue midline. No fasciculations or atrophy. SENSATION: Sensation to touch and pinprick is normal. MOTOR: Normal tone in the upper and lower extremity. Normal muscle bulk. No fasciculations. No abnormal movements or posturing. Muscle strength of the major groups in the upper extremities is 5/5, weak in the left arm than leg however with no obvious drifting REFLEXES: Deep tendon reflexes normal and symmetrical. No pathological reflexes. CEREBELLAR/COORDINATION: Finger to nose is normal bilaterally. GAIT/STATION: deferred Labs/Diagnostic Data Labs Test 08/15/24 06:17 08/15/24 04:31 08/15/24 04:12 08/15/24 00:18 Range/Units POC Glucose 143 H 70-106 mg/dl White Blood Count 4.9 4.4-10.8 10^3/uL Red Blood Count 3.79 L 4.0-5.20 10^6/uL Hemoglobin 11.8 L 12.2-16.2 g/dL Hematocrit 34.4 L 36.0-46.0 % Mean Corpuscular Volume 90.6 80.0-100.0 fL Mean Corpuscular Hemoglobin 31.1 28.0-32.0 pg Mean Corpuscular Hemoglobin Concent 34.3 32.0-36.0 g/dL Red Cell Distribution Width 14.6 H 11.8-14.3 % Platelet Count 193 140-450 10^3/uL Mean Platelet Volume 8.6 6.9-10.8 fL Neutrophils (%) (Auto) 46.6 37.0-80.0 % Lymphocytes (%) (Auto) 37.6 10.0-50.0 % Monocytes (%) (Auto) 10.4 0.0-12.0 % Eosinophils (%) (Auto) 5.1 0.0-7.0 % Basophils (%) (Auto) 0.3 0.0-2.0 % Neutrophils # (Auto) 2.3 1.6-8.6 10 ^3/uL Lymphocytes # (Auto) 1.9 0.4-5.4 10 ^3/uL Monocytes # (Auto) 0.5 0-1.3 10 ^3/uL Eosinophils # (Auto) 0.3 0-0.8 10 ^3/uL Basophils # (Auto) 0 0-0.2 10 ^3/uL Nucleated Red Blood Cells 0.1 % Sodium Level 142 136-145 mmol/L Potassium Level 3.4 L 3.5-5.1 mmol/L Chloride Level 107 98-107 mmol/L Carbon Dioxide Level 27 20-31 mmol/L Anion Gap 8 5-15 Blood Urea Nitrogen 13 9-23 mg/dL Creatinine 0.96 0.550-1.02 mg/dL Glomerular Filtration Rate Calc 64 >90 mL/min BUN/Creatinine Ratio 13.5 10.0-20.0 Serum Glucose 146 H 74-106 mg/dL Calcium Level 9.3 8.7-10.4 mg/dL Total Bilirubin 0.7 0.2-1.0 mg/dL Aspartate Amino Transferase (AST) 22 13-40 U/L Alanine Aminotransferase (ALT) 17 7-40 U/L Alkaline Phosphatase 118 H 46-116 U/L Total Protein 6.3 5.7-8.2 g/dL Albumin 3.4 3.2-4.8 g/dL Urine Color Light-yellow Yellow Urine Clarity Clear Clear Urine pH 6.5 5.0-9.0 Urine Specific [place] 1.015 1.001-1.035 Urine Protein 2+ H Negative Urine Ketones Negative Negative Urine Blood Negative Negative /uL Urine Nitrite Negative Negative Urine Bilirubin Negative Negative Urine Urobilinogen Normal Negative mg/dL Urine Leukocyte Esterase Trace Negative /uL Urine RBC 3 0 - 4 /hpf Urine WBC 15 0 - 5 /hpf Urine Squamous Epithelial Cells Few <5 /hpf Urine Bacteria None seen None Seen /hpf Urine Glucose 1+ H Normal mg/dL Troponin I High Sensitivity 26 </=34 ng/L Test 08/14/24 21:29 Range/Units Prothrombin Time 11.3 9.3-11.8 sec Prothrombin Time INR 1.07 0.9-1.15 Activated Partial Thromboplast Time 30.6 24.5-34.5 SEC Lactic Acid Level 1.0 0.4-2.0 mmol/L Magnesium Level 2.0 1.6-2.6 mg/dL Creatine Kinase 105 34-145 U/L Assessment Falls/syncope Soft tissue contusion in bilateral frontal and periorbital regions Multiple stroke, secondary to hypertension, diabetes, dyslipidemia, atrial fibrillation "Mushrooms size" brain aneurysm ? Right carotid stenosis status post stenting Plan/Recommendation Monitoring Supportive treatment Telemetry EEG MR brain scan Angiogram report from Dr. Chahal (her daughter is to obtain reports and I am ordering information release) Eliquis 5 mg b.i.d. for now More recommendation per clinical course Progress: Poor This medical document was created using an electronic medical record system with [employer] computerized dictation system. Although this document has been carefully reviewed, there may still be some phonetic and typographical errors. These areas are purely typographical due to imperfections of the software programs, and do not reflect any compromise in the patient's medical care. Plan discussed with: Patient, Daughter, Other JO MICHELLE MD Aug 15, 2024 09:01
[2024-08-15] MEDS: LISINOPRIL 5 MG TAB PO SCH (09:52)
[2024-08-15] MEDS: amLODIPine BESYLATE 5 MG TAB PO SCH (09:53)
[2024-08-15] MEDS: ASPirin 81 mg TAB PO SCH (09:53)
[2024-08-15 10:00] VITALS: PULSE 64; RESP 21; O2SAT 96
[2024-08-15] MEDS: LORazepam 2MG/ML-1ML VIAL IV ONE (10:15)
--- NOTE | 2024-08-15 11:01 | ECG ---
[facility] Test Date: 2024-08-14 Test Time: 22:44:07 Pat Name: JHOANA LAI Department: ED Room: 0292T Gender: F Director Executive Communications: MACRINA : 1955 Requested By: CHRISTIAN MACKEY Order Number: [id number] Reading MD: León Dueñas Measurements Intervals [place] Rate: 63 P: -4 AR: 177 QRS: 2 QRSD: 97 T: 261 QT: 417 QTc: 427 Interpretive Statements Sinus rhythm Low voltage, precordial leads Anteroseptal infarct, old Nonspecific T abnormalities, lateral leads Electronically Signed On 08-16-2024 16:16:53 PST by León Dueñas Please click the below link to view image of tracing.
--- NOTE | 2024-08-15 11:03 | ECG ---
[facility] Test Date: 2024-08-15 Test Time: 01:53:39 Pat Name: JHOANA LAI Department: ED Room: 0292T Gender: F Airline Manager: MACRINA : 1955 Requested By: CHRISTIAN MACKEY Order Number: [id number] Reading MD: León Dueñas Measurements Intervals [place] Rate: 58 P: 44 IN: 173 QRS: 17 QRSD: 93 T: 263 QT: 435 QTc: 428 Interpretive Statements Sinus rhythm Anteroseptal infarct, old Nonspecific T abnormalities, lateral leads Electronically Signed On 08-16-2024 16:17:15 PST by León Dueñas Please click the below link to view image of tracing.
--- NOTE | 2024-08-15 11:25 | DVH ---
PROCEDURE: MRI MRA ANGIO HEAD BRAIN INDICATION: aneurysm Exam Date: 08/15/2024 10:32 AM COMPARISON: None TECHNIQUE: MRA head without intravenous contrast. 3D image postprocessing was performed on a dedicated workstation and images were used for interpretat ion and reporting. FINDINGS: MRA head: There is preserved enhancement within the bilateral distal internal carotid arteries. There is prese rved enhancement within the anterior and middle cerebral arteries. There is preserved enhancement wi thin the vertebral arteries, basilar artery, cerebellar arteries and posterior cerebral arteries. Th ere is no evidence of hemodynamically significant intracranial stenosis, proximal occlusion or aneury sm. No abnormal venous signal is seen. IMPRESSION: No evidence of hemodynamically significant intracranial stenosis, proximal occlusion or aneurysm.
--- NOTE | 2024-08-15 11:30 | DVH ---
PROCEDURE: MRI BRAIN HEAD WO CONTRAST INDICATION: cva EXAM DATE: 08/15/2024 10:45 AM COMPARISON: CT HEAD WITHOUT CONTRAST on DOS: 08/14/24 TECHNIQUE: MRI of the brain without intravenous contrast. FINDINGS: Diffusion weighted images of the brain demonstrate no evidence of acute infarction. There is no evidence of acute intracranial hemorrhage, extra-axial collection, mass effect, midline s hift, herniation or hydrocephalus. The ventricles, sulci and cisterns appear age appropriate. Moderate changes of chronic microvascular ischemic disease. Old infarcts in the cerebellum. Cyst in t he right occipital lobe measuring up to 20 mm. Areas of blooming artifact in the right pacheco radiata, left thalamus, jennifer, and right cerebellum. The major vascular flow voids are present. The visualized paranasal sinuses and mastoid air cells are clear. Subcutaneous lesion in the right f orehead measuring up to 10 mm. IMPRESSION: 1. No acute intracranial abnormality. Moderate changes chronic microvascular ischemic disease. Old in farcts in the cerebellum. Areas of blooming artifact described above which are likely related to hemo siderin. Cyst in the right occipital lobe of unclear significance. Subcutaneous lesion in the right f orehead could be related to prior trauma. Clinical correlation and continued follow-up is recommende d. Consider further evaluation with contrast. HS:Y
--- NOTE | 2024-08-15 13:48 | DVHPN2 ---
Reviewed: Care Plan, H&P, Labs, Medications, Previous Orders, Radiology Changes from previous H/P or p: No Changes Eyes: No Pain, No Vision change, No Conjunctivae inflammation, No Eyelid inflammation, No Other, No Redness ENT: No Ear pain, No Ear discharge, No Nose pain, No Nose discharge, No Nose congestion, No Mouth pain, No Mouth swelling, No Throat pain, No Throat swelling, No Other Cardiovascular: No Chest Pain, No Palpitations, No Orthopnea, No Paroxysmal Noc. Dyspnea, No Edema, No Lt Headedness; Other (Syncope) Respiratory: No Cough, No Dry, No Shortness of breath, No SOB with excertion, No Wheezing, No Hemoptysis, No Pleuritic Pain, No Sputum, No Other Gastrointestinal: No Nausea, No Vomiting, No Abdominal Pain, No Diarrhea, No Constipation, No Melena, No Hematochezia, No Other Genitourinary: No Dysuria, No Frequency, No Incontinence, No Hematuria, No Retention, No Other Musculoskeletal: No other, No neck pain, No shoulder pain, No arm pain, No back pain, No hand pain, No leg pain, No foot pain Skin: No Rash, No Lesions, No Jaundice, No Bruising, No Other Objective Vitals Vital Signs Date Time Temp Pulse Resp B/P (MAP) Pulse Ox O2 Delivery O2 Flow Rate FiO2 08/15/24 09:53 152/74 08/15/24 09:35 64 08/15/24 08:28 13 97 08/14/24 21:10 Room Air* 0 21 08/14/24 20:56 98.8 Intake/Output Intake and Output 08/15/24 07:00 Intake Total 360 ml Balance 360 ml Intake IV Total 360 ml Medications Current Medications Medications Dose Ordered Sig/Ac Route Start Time Stop Time Status Last Admin Dose Admin Lisinopril 2.5 mg DAILY PO 08/15/24 10:00 08/15/24 09:52 2.5 MG Amlodipine Besylate 5 mg DAILY PO 08/15/24 10:00 08/15/24 09:53 5 MG Hydralazine HCl 10 mg Q6HP PRN IV 08/14/24 23:00 Meclizine HCl 25 mg [id number] PRN PO 08/14/24 23:00 Diagnostic Test (Pha) 1 strip ACHS 08/15/24 07:00 12/3/24 11:28 1 STRIP Insulin Human Regular HS SC 08/15/24 22:00 Insulin Human Regular AC SC 08/15/24 07:00 08/15/24 11:42 3 UNITS Dextrose 50 ml UD PRN IV 08/14/24 23:00 Sodium Chloride 1,000 ml @ 60 mls/hr [id number] IV 08/14/24 23:00 08/15/24 00:36 60 MLS/HR Acetaminophen/ Hydrocodone Bitart 1 tab Q4HP PRN PO 08/14/24 23:00 Ondansetron HCl 4 mg Q4HP PRN IV 08/14/24 23:00 Docusate Sodium 100 mg BIDPRN PRN PO 08/14/24 23:00 Acetaminophen 650 mg Q6HP PRN PO 08/14/24 23:00 Nitroglycerin 0.4 mg Q5MINP PRN SL 08/14/24 23:00 Morphine Sulfate 2 mg Q30M PRN IV 08/14/24 23:00 Apixaban 5 mg BID PO 08/15/24 22:00 Laboratory Results Laboratory Tests 08/15/24 04:31 Chemistry Test 08/14/24 21:29 08/15/24 04:31 Albumin 4.0 g/dL (3.2-4.8) 3.4 g/dL (3.2-4.8) Calcium Level 9.9 mg/dL (8.7-10.4) 9.3 mg/dL (8.7-10.4) Magnesium Level 2.0 mg/dL (1.6-2.6) Total Protein 7.5 g/dL (5.7-8.2) 6.3 g/dL (5.7-8.2) Coagulation Test 08/14/24 21:29 Prothrombin Time 11.3 sec (9.3-11.8) Prothrombin Time INR 1.07 (0.9-1.15) Activated Partial Thromboplast Time 30.6 SEC (24.5-34.5) LFT Test 08/14/24 21:29 08/15/24 04:31 Alanine Aminotransferase (ALT) 20 U/L (7-40) 17 U/L (7-40) Alkaline Phosphatase 154 U/L (46-116) H 118 U/L (46-116) H Aspartate Amino Transferase (AST) 26 U/L (13-40) 22 U/L (13-40) Total Bilirubin 0.8 mg/dL (0.2-1.0) 0.7 mg/dL (0.2-1.0) Urinalysis Test 08/15/24 04:12 Urine Color Light-yellow (Yellow) Urine Clarity Clear (Clear) Urine pH 6.5 (5.0-9.0) Urine Specific [place] 1.015 (1.001-1.035) Urine Protein 2+ (Negative) H Urine Ketones Negative (Negative) Urine Blood Negative /uL (Negative) Urine Nitrite Negative (Negative) Urine Bilirubin Negative (Negative) Urine Urobilinogen Normal mg/dL (Negative) Urine Leukocyte Esterase Trace /uL (Negative) Urine RBC 3 /hpf (0 - 4) Urine WBC 15 /hpf (0 - 5) Urine Squamous Epithelial Cells Few /hpf (<5) Urine Bacteria None seen /hpf (None Seen) Urine Glucose 1+ mg/dL (Normal) H Labs and/or images reviewed: Labs reviewed by me, Image(s) reviewed by me Assessment/Plan Assessment/Plan Sepsis secondary to urinary tract infection: Blood cultures urine cultures, Rocephin Syncope and fall: C-spine CT negative chest x-ray negative CT head negative except for old ischemic infarcts, MRI brain negative MRA brain negative neurology consult by Dr. Navarro appreciated Right frontal scalp hematoma History of CVA Recurrent falls Atrial fibrillation Eliquis Diabetes poorly controlled: Insulin sliding scale Hypercholesterolemia Accelerated Hypertension: Blood pressure 166/113 lisinopril amlodipine Hypercholesterolemia Echocardiogram Cardiology consult Time Spent 65 minutes Patient is full code Advanced care planning time 20 minutes We will check D-dimer and CPK flu test and Rebecca test Plan discussed with: Patient My Orders Orders - MAYE CALIX MD Procedure Category Date Status Time D-Dimer LAB 08/15/24 Logged 13:42 Urine Bacterial CHARLIE 08/15/24 Logged Culture 13:42 Date of Service: Aug 15, 2024 Billing Provider: MAYE CALIX MD Common Visit Codes: [id number] CARE 30-74 MIN MAYE CALIX MD Aug 15, 2024 13:48
[2024-08-15 15:40] LABS: COVID19 ANTIGEN SOFIA FIA NEGATIVE (NEGATIVE); Rapid Influenza A Negative (Negative); Rapid Influenza B Negative (Negative)
[2024-08-15] MEDS ORDERED: LISI2.5T47 PO (15:58)
[2024-08-15] MEDS ORDERED: SERT-206 PO (15:58)
[2024-08-15] MEDS ORDERED: ASPI325T6 PO (15:58)
[2024-08-15] MEDS ORDERED: ALOG1TAB2 PO (15:58)
[2024-08-15] MEDS ORDERED: AMLO1TAB23 PO (15:58)
[2024-08-15] MEDS ORDERED: CLOP75TA28 PO (15:58)
[2024-08-15] MEDS ORDERED: METF-1145 PO (15:58)
[2024-08-15] MEDS ORDERED: APIX5TAB PO (15:58)
[2024-08-15] MEDS ORDERED: INSU1INJ19 SC (15:58)
[2024-08-15] MEDS ORDERED: CARV3.1240 PO (15:58)
[2024-08-15] MEDS ORDERED: ATOR-47 PO (15:58)
[2024-08-15] MEDS ORDERED: ALEN70TA21 PO (15:58)
[2024-08-15] MEDS ORDERED: DOCU-209 PO (15:58)
[2024-08-15 19:08] VITALS: BP 157/71; PULSE 66; RESP 20; TEMP 98.6; O2SAT 96
[2024-08-15 20:00] VITALS: PULSE 65; PULSE 66; RESP 17; O2SAT 96
[2024-08-15] MEDS ORDERED: HYDR-4072 PO (20:07)
[2024-08-15] MEDS: APIXABAN 5 MG TAB PO SCH (21:45)
[2024-08-15 22:00] VITALS: BP 165/75; PULSE 67; RESP 19; TEMP 98.2; O2SAT 95
[2024-08-15] MEDS: hydrALAZINE HCL 20 MG/ML VL IV PRN (22:00)
[2024-08-16] VITALS (9 sets, daily range): BP systolic 113–158; BP diastolic 55–71; PULSE 66–79; RESP 16–20; TEMP 98–98.6; O2SAT 93–97
--- NOTE | 2024-08-16 00:44 | DVHEEG2 ---
Neurology EEG Procedural Note Procedural Note EXAM DATE: 08/15/24 REFERRING DOCTOR: Dr. Michelle TECHNIQUE: Eighteen channels of EEG, 2 channels of EOG, and 1 channel of EKG were recorded using the International 10/20 system. CLINICAL DATA: The patient was referred for an EEG evaluation for the evidence of seizure disorder. MEDICATIONS: See the chart BACKGROUND ACTIVITY: While the patient was awake, the background activity consisted of well regulated 9-10 Hz rhythmic waveforms, symmetrically distributed over both posterior quadrants and was reactive to eye opening. ACTIVATION: Hyperventilation: Not done Photic Stimulation: Not done Sleep: Noticed IMPRESSION: This is a normal EEG. No focal, lateralized, or epileptiform features are noted. If clinically indicated to rule out a seizure disorder, recommend repeat EEG with sleep deprivation. The EKG channel showed a regular heart rate of 66/min. [place] [address] JO MICHELLE MD Aug 16, 2024 00:44
--- NOTE | 2024-08-16 09:04 | DVHPN2 ---
Progress Note - Dictate Date Seen: Aug 16, 2024 Medical Necessity Reason Pt with a Central, PICC or Fol: No Subjective Ms. Cameron is a 68 years old right-handed female with a history of hypertension, diabetes, dyslipidemia, atrial fibrillation, multiple strokes, she came to the [facility] on 08/14/2024 with a chief company of syncopal event At this time, the patient is alert, oriented, but he does not want to talk Daughter son-in-law are in the room, The case has been discussed with Dr. Alejandro at the family We are awaiting for the angiogram reports Urinalysis, 08/15/2024: WBC: 15, urine leukocyte esterase: Trace CBC, 08/14/2024: Unremarkable CMP, 08/15/2024: Unremarkable EEG, 08/15/2024: Normal CT head, 08/14/2024: 1. Small multifocal contusion/hematomas in the right frontal scalp . 2. No acute intracranial abnormality. 3. Mild cerebral volume loss and moderate chronic microvascular ischemic change. 4. Chronic lacunar infarcts in the bilateral caudate bodies, bilateral basal ganglia and bilateral thalami. 5. Small chronic infarcts in the right occipital lobe and left cerebellum CT C-spine, 08/14/2024: No acute fracture or traumatic malalignment MRI head, 08/15/2024: No acute intracranial abnormality. Moderate changes chronic microvascular ischemic disease. Old infarcts in the cerebellum. Areas of blooming artifact described above which are likely related to hemosiderin. Cyst in the right occipital lobe of unclear significance. Subcutaneous lesion in the right forehead could be related to prior trauma. Clinical correlation and continued follow-up is recommended. Consider further evaluation with contras MRA head, 08/15/2024: No evidence of hemodynamically significant intracranial stenosis, proximal occlusion or aneurysm. vital signs Vital Sign Date Time Temp Pulse Resp B/P (MAP) Pulse Ox O2 Delivery O2 Flow Rate FiO2 08/16/24 08:58 98.0 69 16 128/56 (80) 94 98.0 08/16/24 00:54 Room Air* 0 21 Total Intake and Output 08/15/24 08/15/24 08/16/24 15:00 23:00 07:00 Intake Total 800 ml 35 ml Balance 800 ml 35 ml medications Current Medications Medications Dose Ordered Sig/Ac Route Start Time Stop Time Status Last Admin Dose Admin Lisinopril 2.5 mg DAILY PO 08/15/24 10:00 08/15/24 09:52 2.5 MG Amlodipine Besylate 5 mg DAILY PO 08/15/24 10:00 08/15/24 09:53 5 MG Hydralazine HCl 10 mg Q6HP PRN IV 08/14/24 23:00 08/15/24 22:00 10 MG Meclizine HCl 25 mg [id number] PRN PO 08/14/24 23:00 Diagnostic Test (Pha) 1 strip ACHS 08/15/24 07:00 08/16/24 07:03 1 STRIP Insulin Human Regular HS SC 08/15/24 22:00 Insulin Human Regular AC SC 08/15/24 07:00 08/16/24 07:06 2 UNITS Dextrose 50 ml UD PRN IV 08/14/24 23:00 Sodium Chloride 1,000 ml @ 60 mls/hr [id number] IV 08/14/24 23:00 08/15/24 15:40 60 MLS/HR Acetaminophen/ Hydrocodone Bitart 1 tab Q4HP PRN PO 08/14/24 23:00 Ondansetron HCl 4 mg Q4HP PRN IV 08/14/24 23:00 Docusate Sodium 100 mg BIDPRN PRN PO 08/14/24 23:00 Acetaminophen 650 mg Q6HP PRN PO 08/14/24 23:00 Nitroglycerin 0.4 mg Q5MINP PRN SL 08/14/24 23:00 Morphine Sulfate 2 mg Q30M PRN IV 08/14/24 23:00 Apixaban 5 mg BID PO 08/15/24 22:00 08/15/24 21:45 5 MG objective General: the patient is well developed and nourished. No acute distress. MENTAL STATUS: Subjective SPEECH, LANGUAGE, HIGHER CORTICAL FUNCTION: no aphasia or dysathria. CRANIAL NERVES: upils are equal, round and reactive. EOMs full and conjugate. No nystagmus. Facial sensation intact in all three divisions bilaterally. Mandibular strength intact. Facial muscles symmetrical and strength intact. SENSATION: Sensation to touch and pinprick is normal. MOTOR: Normal tone in the upper and lower extremity. Normal muscle bulk. No fasciculations. No abnormal movements or posturing. Muscle strength of the major groups in the upper extremities is 5/5, weak in the left arm than leg however with no obvious drifting REFLEXES: Deep tendon reflexes normal and symmetrical. No pathological reflexes. CEREBELLAR/COORDINATION: Finger to nose is normal bilaterally. GAIT/STATION: deferred laboratory and microbiology Laboratory Tests 08/15/24 04:31 Test 08/15/24 04:31 Range/Units Serum Glucose 146 H 74-106 mg/dL Problem List Falls/syncope Soft tissue contusion in bilateral frontal and periorbital regions Multiple chronic strokes, secondary to hypertension, diabetes, dyslipidemia, atrial fibrillation "Mushrooms size" brain aneurysm, not confirmed with MRA brain on 08/15/2024 ? Right carotid stenosis status post stenting Assessment/Plan Monitoring Supportive treatment Telemetry Angiogram report from Dr. Chahal (her daughter is to obtain reports and I am ordering information release) Eliquis 5 mg b.i.d. for now More recommendation per clinical course This medical document was created using an electronic medical record system with [email or web address] computerized dictation system. Although this document has been carefully reviewed, there may still be some phonetic and typographical errors. These areas are purely typographical due to imperfections of the software programs, and do not reflect any compromise in the patient's medical care. Prognosis poor Plan discussed with: Patient, Daughter, Son, Other Total Time (mins): 40 JO MICHELLE MD Aug 16, 2024 09:04
--- NOTE | 2024-08-16 09:25 | DVHPN2 ---
Reviewed: Care Plan, H&P, Labs, Medications, Previous Orders, Radiology Changes from previous H/P or p: No Changes Eyes: No Pain, No Vision change, No Conjunctivae inflammation, No Eyelid inflammation, No Other, No Redness ENT: No Ear pain, No Ear discharge, No Nose pain, No Nose discharge, No Nose congestion, No Mouth pain, No Mouth swelling, No Throat pain, No Throat swelling, No Other Cardiovascular: No Chest Pain, No Palpitations, No Orthopnea, No Paroxysmal Noc. Dyspnea, No Edema, No Lt Headedness; Other (Syncope) Respiratory: No Cough, No Dry, No Shortness of breath, No SOB with excertion, No Wheezing, No Hemoptysis, No Pleuritic Pain, No Sputum, No Other Gastrointestinal: No Nausea, No Vomiting, No Abdominal Pain, No Diarrhea, No Constipation, No Melena, No Hematochezia, No Other Genitourinary: No Dysuria, No Frequency, No Incontinence, No Hematuria, No Retention, No Other Musculoskeletal: No other, No neck pain, No shoulder pain, No arm pain, No back pain, No hand pain, No leg pain, No foot pain Skin: No Rash, No Lesions, No Jaundice, No Bruising, No Other Objective Vitals Vital Signs Date Time Temp Pulse Resp B/P (MAP) Pulse Ox O2 Delivery O2 Flow Rate FiO2 08/16/24 08:58 98.0 69 16 128/56 (80) 94 98.0 08/16/24 00:54 Room Air* 0 21 Intake/Output Intake and Output 08/16/24 07:00 Intake Total 835 ml Balance 835 ml Intake Oral 835 ml # Voids 2 Medications Current Medications Medications Dose Ordered Sig/Ac Route Start Time Stop Time Status Last Admin Dose Admin Lisinopril 2.5 mg DAILY PO 08/15/24 10:00 08/15/24 09:52 2.5 MG Amlodipine Besylate 5 mg DAILY PO 08/15/24 10:00 08/15/24 09:53 5 MG Hydralazine HCl 10 mg Q6HP PRN IV 08/14/24 23:00 08/15/24 22:00 10 MG Meclizine HCl 25 mg [id number] PRN PO 08/14/24 23:00 Diagnostic Test (Pha) 1 strip ACHS 08/15/24 07:00 08/16/24 07:03 1 STRIP Insulin Human Regular HS SC 08/15/24 22:00 Insulin Human Regular AC SC 08/15/24 07:00 08/16/24 07:06 2 UNITS Dextrose 50 ml UD PRN IV 08/14/24 23:00 Sodium Chloride 1,000 ml @ 60 mls/hr [id number] IV 08/14/24 23:00 08/15/24 15:40 60 MLS/HR Acetaminophen/ Hydrocodone Bitart 1 tab Q4HP PRN PO 08/14/24 23:00 Ondansetron HCl 4 mg Q4HP PRN IV 08/14/24 23:00 Docusate Sodium 100 mg BIDPRN PRN PO 08/14/24 23:00 Acetaminophen 650 mg Q6HP PRN PO 08/14/24 23:00 Nitroglycerin 0.4 mg Q5MINP PRN SL 08/14/24 23:00 Morphine Sulfate 2 mg Q30M PRN IV 08/14/24 23:00 Apixaban 5 mg BID PO 08/15/24 22:00 08/15/24 21:45 5 MG Laboratory Results Laboratory Tests 08/15/24 04:31 Coagulation Test 08/15/24 14:01 D-Dimer, Quantitative 0.88 mg/L FEU (0.0-0.49) H Urinalysis Test 08/15/24 04:12 Urine Color Light-yellow (Yellow) Urine Clarity Clear (Clear) Urine pH 6.5 (5.0-9.0) Urine Specific [place] 1.015 (1.001-1.035) Urine Protein 2+ (Negative) H Urine Ketones Negative (Negative) Urine Blood Negative /uL (Negative) Urine Nitrite Negative (Negative) Urine Bilirubin Negative (Negative) Urine Urobilinogen Normal mg/dL (Negative) Urine Leukocyte Esterase Trace /uL (Negative) Urine RBC 3 /hpf (0 - 4) Urine WBC 15 /hpf (0 - 5) Urine Squamous Epithelial Cells Few /hpf (<5) Urine Bacteria None seen /hpf (None Seen) Urine Glucose 1+ mg/dL (Normal) H Labs and/or images reviewed: Labs reviewed by me, Image(s) reviewed by me Assessment/Plan Assessment/Plan Sepsis secondary to urinary tract infection: Blood cultures urine cultures, Rocephin Syncope and fall: C-spine CT negative chest x-ray negative CT head negative except for old ischemic infarcts, MRI brain negative MRA brain negative neurology consult by Dr. Navarro appreciated, EEG normal Right frontal scalp hematoma Right and left periorbital hematoma History of CVA Recurrent falls Atrial fibrillation Eliquis Uncontrolled diabetes: Insulin sliding scale Hypercholesterolemia History of right carotid stents History of hairline fracture left hip three years ago Accelerated Hypertension: Blood pressure 166/113 lisinopril amlodipine Flu test negative COVID test negative D-dimer normal Echocardiogram Cardiology consult Time Spent 55 minutes Patient moved to [facility] three years ago home [place] Depression: Zoloft, one year ago Patient is full code Advanced care planning time 20 minutes Patient's daughter and caregiver Charlette at bedside [phone], son-in-law Bill also at bedside Plan discussed with: Patient My Orders Orders - MAYE CALIX MD Procedure Category Date Status Time Urine Bacterial CHARLIE 08/15/24 In Process Culture 13:42 Date of Service: Aug 16, 2024 Billing Provider: MAYE CALIX MD Common Visit Codes: [id number] INP/OBS CARE([facility]) MAYE CALIX MD Aug 16, 2024 09:25
[2024-08-16] MEDS: SERTRALINE HCL 50 MG TAB PO SCH (12:22)
[2024-08-17] VITALS (8 sets, daily range): BP systolic 119–154; BP diastolic 56–72; PULSE 63–80; RESP 15–19; TEMP 97.6–99.6; O2SAT 92–97
--- NOTE | 2024-08-17 10:03 | DVHPN2 ---
Progress Note - Dictate Date Seen: Aug 17, 2024 Medical Necessity Reason Pt with a Central, PICC or Fol: No Subjective Ms. Cameron is a 68 years old right-handed female with a history of hypertension, diabetes, dyslipidemia, atrial fibrillation, multiple strokes, she came to the [facility] on 08/14/2024 with a chief company of syncopal event At this time, the patient is alert, oriented, but he does not want to talk I have reviewed the info from the [facility], the angiogram report showed a DARYL brain aneurysm [facility] information Cerebral angiogram, 11/10/2023 a secondary in located a mushroom like irregular. Aneurysm, 5.2 mm (high) x 1.2mm (neck) in the left anterior cerebral artery Urinalysis, 08/15/2024: WBC: 15, urine leukocyte esterase: Trace CBC, 08/14/2024: Unremarkable CMP, 08/15/2024: Unremarkable EEG, 08/15/2024: Normal CT head, 08/14/2024: 1. Small multifocal contusion/hematomas in the right frontal scalp . 2. No acute intracranial abnormality. 3. Mild cerebral volume loss and moderate chronic microvascular ischemic change. 4. Chronic lacunar infarcts in the bilateral caudate bodies, bilateral basal ganglia and bilateral thalami. 5. Small chronic infarcts in the right occipital lobe and left cerebellum CT C-spine, 08/14/2024: No acute fracture or traumatic malalignment MRI head, 08/15/2024: No acute intracranial abnormality. Moderate changes chronic microvascular ischemic disease. Old infarcts in the cerebellum. Areas of blooming artifact described above which are likely related to hemosiderin. Cyst in the right occipital lobe of unclear significance. Subcutaneous lesion in the right forehead could be related to prior trauma. Clinical correlation and continued follow-up is recommended. Consider further evaluation with contras MRA head, 08/15/2024: No evidence of hemodynamically significant intracranial stenosis, proximal occlusion or aneurysm. vital signs Vital Sign Date Time Temp Pulse Resp B/P (MAP) Pulse Ox O2 Delivery O2 Flow Rate FiO2 08/17/24 05:00 97.9 68 19 152/63 (92) 97 97.9 08/16/24 20:00 Room Air* 0 21 Total Intake and Output 08/16/24 08/16/24 08/17/24 15:00 23:00 07:00 Intake Total 600 ml 800 ml Output Total 350 ml Balance 600 ml 450 ml medications Current Medications Medications Dose Ordered Sig/Ac Route Start Time Stop Time Status Last Admin Dose Admin Lisinopril 2.5 mg DAILY PO 08/15/24 10:00 08/16/24 09:53 2.5 MG Amlodipine Besylate 5 mg DAILY PO 08/15/24 10:00 08/16/24 09:53 5 MG Hydralazine HCl 10 mg Q6HP PRN IV 08/14/24 23:00 08/16/24 21:03 10 MG Meclizine HCl 25 mg [id number] PRN PO 08/14/24 23:00 Diagnostic Test (Pha) 1 strip ACHS 08/15/24 07:00 08/17/24 06:37 1 STRIP Insulin Human Regular HS SC 08/15/24 22:00 08/16/24 21:40 2 UNITS Insulin Human Regular AC SC 08/15/24 07:00 08/17/24 06:35 3 UNITS Dextrose 50 ml UD PRN IV 08/14/24 23:00 Sodium Chloride 1,000 ml @ 60 mls/hr [id number] IV 08/14/24 23:00 08/17/24 00:23 60 MLS/HR Acetaminophen/ Hydrocodone Bitart 1 tab Q4HP PRN PO 08/14/24 23:00 Ondansetron HCl 4 mg Q4HP PRN IV 08/14/24 23:00 Docusate Sodium 100 mg BIDPRN PRN PO 08/14/24 23:00 Acetaminophen 650 mg Q6HP PRN PO 08/14/24 23:00 Nitroglycerin 0.4 mg Q5MINP PRN SL 08/14/24 23:00 Morphine Sulfate 2 mg Q30M PRN IV 08/14/24 23:00 Apixaban 5 mg BID PO 08/15/24 22:00 08/16/24 21:03 5 MG Sertraline HCl 100 mg DAILY PO 08/16/24 10:00 08/16/24 12:22 100 MG objective General: the patient is well developed and nourished. No acute distress. MENTAL STATUS: Subjective SPEECH, LANGUAGE, HIGHER CORTICAL FUNCTION: no aphasia or dysathria. CRANIAL NERVES: upils are equal, round and reactive. EOMs full and conjugate. No nystagmus. Facial sensation intact in all three divisions bilaterally. Mandibular strength intact. Facial muscles symmetrical and strength intact. SENSATION: Sensation to touch and pinprick is normal. MOTOR: Normal tone in the upper and lower extremity. Normal muscle bulk. No fasciculations. No abnormal movements or posturing. Muscle strength of the major groups in the upper extremities is 5/5, weak in the left arm than leg however with no obvious drifting REFLEXES: Deep tendon reflexes normal and symmetrical. No pathological reflexes. CEREBELLAR/COORDINATION: Finger to nose is normal bilaterally. GAIT/STATION: deferred laboratory and microbiology Laboratory Tests 08/15/24 04:31 Test 08/15/24 04:31 Range/Units Serum Glucose 146 H 74-106 mg/dL Problem List Falls/syncope Soft tissue contusion in bilateral frontal and periorbital regions Multiple chronic strokes, secondary to hypertension, diabetes, dyslipidemia, atrial fibrillation "Mushrooms size" brain aneurysm, not confirmed with MRA brain on 08/15/2024 ? Right carotid stenosis status post stenting Assessment/Plan Monitoring Supportive treatment Telemetry Eliquis 5 mg b.i.d. for now A recommendation be evaluated higher level care, I have discussed with her, her primary care team and her family RA More recommendation per clinical course This medical document was created using an electronic medical record system with [employer] dictation system. Although this document has been carefully reviewed, there may still be some phonetic and typographical errors. These areas are purely typographical due to imperfections of the software programs, and do not reflect any compromise in the patient's medical care. Prognosis poor Plan discussed with: Patient, Other Total Time (mins): 40 JO MICHELLE MD Aug 17, 2024 10:03
--- NOTE | 2024-08-17 11:30 | DVHPN2 ---
Reviewed: Care Plan, H&P, Labs, Medications, Previous Orders, Radiology Changes from previous H/P or p: No Changes Eyes: No Pain, No Vision change, No Conjunctivae inflammation, No Eyelid inflammation, No Other, No Redness ENT: No Ear pain, No Ear discharge, No Nose pain, No Nose discharge, No Nose congestion, No Mouth pain, No Mouth swelling, No Throat pain, No Throat swelling, No Other Cardiovascular: No Chest Pain, No Palpitations, No Orthopnea, No Paroxysmal Noc. Dyspnea, No Edema, No Lt Headedness; Other (Syncope) Respiratory: No Cough, No Dry, No Shortness of breath, No SOB with excertion, No Wheezing, No Hemoptysis, No Pleuritic Pain, No Sputum, No Other Gastrointestinal: No Nausea, No Vomiting, No Abdominal Pain, No Diarrhea, No Constipation, No Melena, No Hematochezia, No Other Genitourinary: No Dysuria, No Frequency, No Incontinence, No Hematuria, No Retention, No Other Musculoskeletal: No other, No neck pain, No shoulder pain, No arm pain, No back pain, No hand pain, No leg pain, No foot pain Skin: No Rash, No Lesions, No Jaundice, No Bruising, No Other Objective Vitals Vital Signs Date Time Temp Pulse Resp B/P (MAP) Pulse Ox O2 Delivery O2 Flow Rate FiO2 08/17/24 10:45 132/71 08/17/24 09:00 98.5 68 15 92 98.5 08/16/24 20:00 Room Air* 0 21 Intake/Output Intake and Output 08/17/24 07:00 Intake Total 1400 ml Output Total 350 ml Balance 1050 ml Intake Oral 1100 ml IV Total 300 ml Output Urine Total 350 ml # Voids 3 Medications Current Medications Medications Dose Ordered Sig/Ac Route Start Time Stop Time Status Last Admin Dose Admin Lisinopril 2.5 mg DAILY PO 08/15/24 10:00 08/17/24 10:45 2.5 MG Amlodipine Besylate 5 mg DAILY PO 08/15/24 10:00 08/17/24 10:45 5 MG Hydralazine HCl 10 mg Q6HP PRN IV 08/14/24 23:00 08/16/24 21:03 10 MG Meclizine HCl 25 mg [id number] PRN PO 08/14/24 23:00 Diagnostic Test (Pha) 1 strip ACHS 08/15/24 07:00 08/17/24 06:37 1 STRIP Insulin Human Regular HS SC 08/15/24 22:00 08/16/24 21:40 2 UNITS Insulin Human Regular AC SC 08/15/24 07:00 08/17/24 06:35 3 UNITS Dextrose 50 ml UD PRN IV 08/14/24 23:00 Sodium Chloride 1,000 ml @ 60 mls/hr [id number] IV 08/14/24 23:00 08/17/24 00:23 60 MLS/HR Acetaminophen/ Hydrocodone Bitart 1 tab Q4HP PRN PO 08/14/24 23:00 Ondansetron HCl 4 mg Q4HP PRN IV 08/14/24 23:00 Docusate Sodium 100 mg BIDPRN PRN PO 08/14/24 23:00 Acetaminophen 650 mg Q6HP PRN PO 08/14/24 23:00 Nitroglycerin 0.4 mg Q5MINP PRN SL 08/14/24 23:00 Morphine Sulfate 2 mg Q30M PRN IV 08/14/24 23:00 Apixaban 5 mg BID PO 08/15/24 22:00 08/17/24 10:40 5 MG Sertraline HCl 100 mg DAILY PO 08/16/24 10:00 08/17/24 10:46 100 MG Ceftriaxone Sodium 50 ml @ 100 mls/hr DAILY@09 IV 08/18/24 09:00 Laboratory Results Laboratory Tests 08/15/24 04:31 Urinalysis Test 08/15/24 04:12 Urine Color Light-yellow (Yellow) Urine Clarity Clear (Clear) Urine pH 6.5 (5.0-9.0) Urine Specific [place] 1.015 (1.001-1.035) Urine Protein 2+ (Negative) H Urine Ketones Negative (Negative) Urine Blood Negative /uL (Negative) Urine Nitrite Negative (Negative) Urine Bilirubin Negative (Negative) Urine Urobilinogen Normal mg/dL (Negative) Urine Leukocyte Esterase Trace /uL (Negative) Urine RBC 3 /hpf (0 - 4) Urine WBC 15 /hpf (0 - 5) Urine Squamous Epithelial Cells Few /hpf (<5) Urine Bacteria None seen /hpf (None Seen) Urine Glucose 1+ mg/dL (Normal) H Microbiology Microbiology Date/Time Source Procedure Growth Status 08/16/24 11:00 Blood Blood Culture - Preliminary NO GROWTH AFTER 24 HOURS OF INCUBATION. Resulted 08/15/24 04:12 Voided Urine Urine Culture - Preliminary Resulted Labs and/or images reviewed: Labs reviewed by me, Image(s) reviewed by me Assessment/Plan Assessment/Plan Sepsis secondary to urinary tract infection: Blood cultures urine cultures, Rocephin Syncope and fall: C-spine CT negative chest x-ray negative CT head negative except for old ischemic infarcts, MRI brain negative MRA brain negative neurology consult by Dr. Navarro appreciated, EEG normal Right frontal scalp hematoma Right and left periorbital hematoma History of CVA Recurrent falls Atrial fibrillation Eliquis Uncontrolled diabetes: Insulin sliding scale Hypercholesterolemia History of right carotid stents History of hairline fracture left hip three years ago Accelerated Hypertension: Blood pressure 166/113 lisinopril amlodipine Flu test negative COVID test negative D-dimer normal Echocardiogram Cardiology consult Time Spent 55 minutes Patient moved to [facility] three years ago home [place] Depression: Zoloft, one year ago Patient is full code Advanced care planning time 20 minutes Patient's daughter and caregiver Charlette at bedside [phone], son-in-law Bill also at bedside Reviewed medical records from [facility], all workup for cerebral aneurysm negative. Plan discussed with: Patient My Orders Orders - MAYE CALIX MD Procedure Category Date Status Time Ceftriaxone 1gm/50ml PHA 08/18/24 In Process D5w (Rocephin) 09:00 Ceftriaxone 1gm/50ml PHA 08/17/24 In Process D5w (Rocephin) 11:15 Date of Service: Aug 17, 2024 Billing Provider: MAYE CALIX MD Common Visit Codes: [id number] INP/OBS CARE([facility]) MAYE CALIX MD Aug 17, 2024 11:30
[2024-08-17] MEDS: cefTRIAXone 1GM/50ML D5W 50 ML IV ONE (12:31)
[2024-08-18 01:00] VITALS: BP 113/71; PULSE 76; RESP 16; TEMP 98.5; O2SAT 96
[2024-08-18 05:00] VITALS: BP 157/67; PULSE 68; RESP 16; TEMP 98.5; O2SAT 95
[2024-08-18 08:00] VITALS: PULSE 66; RESP 16; O2SAT 97
[2024-08-18 09:00] VITALS: BP 106/52; PULSE 65; RESP 19; TEMP 99; O2SAT 95
[2024-08-18] MEDS: cefTRIAXone 1GM/50ML D5W 50 ML IV SCH (09:15)
[2024-08-18] MEDS ORDERED: CIPR-173 PO (11:15)
--- NOTE | 2024-08-18 11:15 | DVHPN2 ---
Reviewed: Care Plan, H&P, Labs, Medications, Previous Orders, Radiology Changes from previous H/P or p: No Changes Eyes: No Pain, No Vision change, No Conjunctivae inflammation, No Eyelid inflammation, No Other, No Redness ENT: No Ear pain, No Ear discharge, No Nose pain, No Nose discharge, No Nose congestion, No Mouth pain, No Mouth swelling, No Throat pain, No Throat swelling, No Other Cardiovascular: No Chest Pain, No Palpitations, No Orthopnea, No Paroxysmal Noc. Dyspnea, No Edema, No Lt Headedness; Other (Syncope) Respiratory: No Cough, No Dry, No Shortness of breath, No SOB with excertion, No Wheezing, No Hemoptysis, No Pleuritic Pain, No Sputum, No Other Gastrointestinal: No Nausea, No Vomiting, No Abdominal Pain, No Diarrhea, No Constipation, No Melena, No Hematochezia, No Other Genitourinary: No Dysuria, No Frequency, No Incontinence, No Hematuria, No Retention, No Other Musculoskeletal: No other, No neck pain, No shoulder pain, No arm pain, No back pain, No hand pain, No leg pain, No foot pain Skin: No Rash, No Lesions, No Jaundice, No Bruising, No Other Objective Vitals Vital Signs Date Time Temp Pulse Resp B/P (MAP) Pulse Ox O2 Delivery O2 Flow Rate FiO2 08/18/24 09:16 106/52 08/18/24 09:00 99.0 65 19 95 99.0 08/17/24 20:00 Room Air* 0 21 Intake/Output Intake and Output 08/18/24 07:00 Intake Total 890 ml Balance 890 ml Intake Oral 890 ml # Voids 5 # Bowel Movements 3 Medications Current Medications Medications Dose Ordered Sig/Ac Route Start Time Stop Time Status Last Admin Dose Admin Lisinopril 2.5 mg DAILY PO 08/15/24 10:00 08/18/24 09:15 2.5 MG Amlodipine Besylate 5 mg DAILY PO 08/15/24 10:00 08/18/24 09:16 5 MG Hydralazine HCl 10 mg Q6HP PRN IV 08/14/24 23:00 08/16/24 21:03 10 MG Meclizine HCl 25 mg [id number] PRN PO 08/14/24 23:00 Diagnostic Test (Pha) 1 strip ACHS 08/15/24 07:00 08/18/24 06:41 1 STRIP Insulin Human Regular HS SC 08/15/24 22:00 08/17/24 21:46 3 UNITS Insulin Human Regular AC SC 08/15/24 07:00 08/18/24 06:44 2 UNITS Dextrose 50 ml UD PRN IV 08/14/24 23:00 Sodium Chloride 1,000 ml @ 60 mls/hr [id number] IV 08/14/24 23:00 08/18/24 09:17 60 MLS/HR Acetaminophen/ Hydrocodone Bitart 1 tab Q4HP PRN PO 08/14/24 23:00 Ondansetron HCl 4 mg Q4HP PRN IV 08/14/24 23:00 Docusate Sodium 100 mg BIDPRN PRN PO 08/14/24 23:00 Acetaminophen 650 mg Q6HP PRN PO 08/14/24 23:00 Nitroglycerin 0.4 mg Q5MINP PRN SL 08/14/24 23:00 Morphine Sulfate 2 mg Q30M PRN IV 08/14/24 23:00 Apixaban 5 mg BID PO 08/15/24 22:00 08/18/24 09:16 5 MG Sertraline HCl 100 mg DAILY PO 08/16/24 10:00 08/18/24 09:16 100 MG Ceftriaxone Sodium 50 ml @ 100 mls/hr DAILY@09 IV 08/18/24 09:00 08/18/24 09:15 100 MLS/HR Laboratory Results Laboratory Tests 08/15/24 04:31 Urinalysis Test 08/15/24 04:12 Urine Color Light-yellow (Yellow) Urine Clarity Clear (Clear) Urine pH 6.5 (5.0-9.0) Urine Specific [place] 1.015 (1.001-1.035) Urine Protein 2+ (Negative) H Urine Ketones Negative (Negative) Urine Blood Negative /uL (Negative) Urine Nitrite Negative (Negative) Urine Bilirubin Negative (Negative) Urine Urobilinogen Normal mg/dL (Negative) Urine Leukocyte Esterase Trace /uL (Negative) Urine RBC 3 /hpf (0 - 4) Urine WBC 15 /hpf (0 - 5) Urine Squamous Epithelial Cells Few /hpf (<5) Urine Bacteria None seen /hpf (None Seen) Urine Glucose 1+ mg/dL (Normal) H Microbiology Microbiology Date/Time Source Procedure Growth Status 08/16/24 11:00 Blood Blood Culture - Preliminary NO GROWTH AFTER 48 HOURS OF INCUBATION. Resulted 08/15/24 04:12 Voided Urine Urine Culture - Final Complete Labs and/or images reviewed: Labs reviewed by me, Image(s) reviewed by me Assessment/Plan Assessment/Plan Sepsis secondary to urinary tract infection: Blood cultures negative urine cultures mixed, Rocephin Syncope and fall: C-spine CT negative chest x-ray negative CT head negative except for old ischemic infarcts, MRI brain negative MRA brain negative neurology consult by Dr. Navarro appreciated, EEG normal Right frontal scalp hematoma Right and left periorbital hematoma History of CVA Recurrent falls Atrial fibrillation Eliquis Uncontrolled diabetes: Insulin sliding scale Hypercholesterolemia History of right carotid stents History of hairline fracture left hip three years ago Accelerated Hypertension: Blood pressure 166/113 lisinopril amlodipine Flu test negative COVID test negative D-dimer normal Echocardiogram Cardiology consult Time Spent 55 minutes Patient moved to [facility] three years ago home [place] Depression: Zoloft, one year ago Patient is full code Advanced care planning time 20 minutes Patient's daughter and caregiver Charlette at bedside [phone], son-in-law Bill also at bedside Reviewed medical records from [facility], all workup for cerebral aneurysm negative. Plan discussed with: Patient Date of Service: Aug 18, 2024 Billing Provider: MAYE CALIX MD Common Visit Codes: [id number] INP/OBS CARE([facility]) MAYE CALIX MD Aug 18, 2024 11:15
--- NOTE | 2024-08-18 11:19 | DVHDS2 ---
Discharge Summary Date of Admission Aug 14, 2024 at 22:46 Date of Discharge: Aug 18, 2024 Admitting Diagnosis Altered mental status confusion and fall Wounds: Periorbital and scalp hematoma Labs/Diagnostic Data: Laboratory Results Test 08/18/24 05:57 08/15/24 14:24 08/15/24 14:01 08/15/24 04:31 POC Glucose 153 mg/dl (70-106) Influenza Type A Antigen Negative (Negative) Influenza Type B Antigen Negative (Negative) SARS-CoV-2 Antigen (Rapid) Negative (NEGATIVE) D-Dimer, Quantitative 0.88 mg/L FEU (0.0-0.49) Creatine Kinase 90 U/L (34-145) White Blood Count 4.9 10^3/uL (4.4-10.8) Red Blood Count 3.79 10^6/uL (4.0-5.20) Hemoglobin 11.8 g/dL (12.2-16.2) Hematocrit 34.4 % (36.0-46.0) Mean Corpuscular Volume 90.6 fL (80.0-100.0) Mean Corpuscular Hemoglobin 31.1 pg (28.0-32.0) Mean Corpuscular Hemoglobin Concent 34.3 g/dL (32.0-36.0) Red Cell Distribution Width 14.6 % (11.8-14.3) Platelet Count 193 10^3/uL (140-450) Mean Platelet Volume 8.6 fL (6.9-10.8) Neutrophils (%) (Auto) 46.6 % (37.0-80.0) Lymphocytes (%) (Auto) 37.6 % (10.0-50.0) Monocytes (%) (Auto) 10.4 % (0.0-12.0) Eosinophils (%) (Auto) 5.1 % (0.0-7.0) Basophils (%) (Auto) 0.3 % (0.0-2.0) Neutrophils # (Auto) 2.3 10 ^3/uL (1.6-8.6) Lymphocytes # (Auto) 1.9 10 ^3/uL (0.4-5.4) Monocytes # (Auto) 0.5 10 ^3/uL (0-1.3) Eosinophils # (Auto) 0.3 10 ^3/uL (0-0.8) Basophils # (Auto) 0 10 ^3/uL (0-0.2) Nucleated Red Blood Cells 0.1 % Sodium Level 142 mmol/L (136-145) Potassium Level 3.4 mmol/L (3.5-5.1) Chloride Level 107 mmol/L (98-107) Carbon Dioxide Level 27 mmol/L (20-31) Anion Gap 8 (5-15) Blood Urea Nitrogen 13 mg/dL (9-23) Creatinine 0.96 mg/dL (0.550-1.02) Glomerular Filtration Rate Calc 64 mL/min (>90) BUN/Creatinine Ratio 13.5 (10.0-20.0) Serum Glucose 146 mg/dL (74-106) Calcium Level 9.3 mg/dL (8.7-10.4) Total Bilirubin 0.7 mg/dL (0.2-1.0) Aspartate Amino Transferase (AST) 22 U/L (13-40) Alanine Aminotransferase (ALT) 17 U/L (7-40) Alkaline Phosphatase 118 U/L (46-116) Total Protein 6.3 g/dL (5.7-8.2) Albumin 3.4 g/dL (3.2-4.8) Test 08/15/24 04:12 08/15/24 00:18 08/14/24 21:29 Urine Color Light-yellow (Yellow) Urine Clarity Clear (Clear) Urine pH 6.5 (5.0-9.0) Urine Specific [place] 1.015 (1.001-1.035) Urine Protein 2+ (Negative) Urine Ketones Negative (Negative) Urine Blood Negative /uL (Negative) Urine Nitrite Negative (Negative) Urine Bilirubin Negative (Negative) Urine Urobilinogen Normal mg/dL (Negative) Urine Leukocyte Esterase Trace /uL (Negative) Urine RBC 3 /hpf (0 - 4) Urine WBC 15 /hpf (0 - 5) Urine Squamous Epithelial Cells Few /hpf (<5) Urine Bacteria None seen /hpf (None Seen) Urine Glucose 1+ mg/dL (Normal) Troponin I High Sensitivity 26 ng/L (</=34) Prothrombin Time 11.3 sec (9.3-11.8) Prothrombin Time INR 1.07 (0.9-1.15) Activated Partial Thromboplast Time 30.6 SEC (24.5-34.5) Lactic Acid Level 1.0 mmol/L (0.4-2.0) Magnesium Level 2.0 mg/dL (1.6-2.6) Other Laboratory Tests 08/15/24 04:31 Brief Hx & Hospital Course: 68-year-old female with a history of CVA recurrent falls atrial fibrillation and diabetes hypercholesterolemia history of right carotid stents history of [place] fracture left hip three years ago hypotension burden by family for generalized weakness syncope and fall patient has had a scalp hematoma in the right side and also bilateral periorbital hematoma. C-spine CT was negative chest x-ray negative CT head negative except for old ischemic infarct MRI brain negative MRI brain negative CT angiogram negative EEG normal neurology consult by Dr. Navarro patient was found to be in sepsis secondary to urinary tract infection treated with Rocephin blood cultures negative urine cultures were mixed. At the time of discharge patient is alert awake oriented x3 with stable vital signs discharged home. Patient's daughter Charlette at the bedside and agreeable with the discharge plan please Consults/Reason for consult Neurology Dr. Navarro Operations or Procedures CT head CT neck angiogram MRI brain Condition at Discharge: Fair Final Diagnosis/Problems List Sepsis secondary to urinary tract infection: Blood cultures negative urine cultures mixed, Rocephin Syncope and fall: C-spine CT negative chest x-ray negative CT head negative except for old ischemic infarcts, MRI brain negative MRA brain negative neurology consult by Dr. Navarro appreciated, EEG normal Right frontal scalp hematoma Right and left periorbital hematoma History of CVA Recurrent falls Atrial fibrillation Eliquis Uncontrolled diabetes: Insulin sliding scale Hypercholesterolemia History of right carotid stents History of hairline fracture left hip three years ago Accelerated Hypertension: Blood pressure 166/113 lisinopril amlodipine Flu test negative COVID test negative D-dimer normal Discharge Disposition: Home Discharge Instruct/Medications Diet: Cardiac 2g Na,low cholest Activity: Light activity Follow Up/Referral: Follow up with your primary Dr Nash all previous home medications Medications: Cipro Transmitted to [facility] [address] (Time taken for discharge summary 39 minutes) Discharge Statement: "Patient was advised to return to the ER or call 911 if any headaches, dizziness, shortness of breath, chest pain, abdominal pain, bleeding, fevers, or worsening of medical condition. Patient was counseled about treatment plan, medications, possible side effects, patientverbalized understanding. All questions were answered to the best of my ability. This discharge took greater then 30 minutes in planning, reviewing documentation, counseling the patient, and discussing with other team members." ASSESSMENT ASSESSMENT Hospital Course Improved Assessment Sepsis secondary to urinary tract infection: Blood cultures negative urine cultures mixed, Rocephin Syncope and fall: C-spine CT negative chest x-ray negative CT head negative except for old ischemic infarcts, MRI brain negative MRA brain negative neurology consult by Dr. Navarro appreciated, EEG normal Right frontal scalp hematoma Right and left periorbital hematoma History of CVA Recurrent falls Atrial fibrillation Eliquis Uncontrolled diabetes: Insulin sliding scale Hypercholesterolemia History of right carotid stents History of hairline fracture left hip three years ago Accelerated Hypertension: Blood pressure 166/113 lisinopril amlodipine Flu test negative COVID test negative D-dimer normal Date of Service: Aug 18, 2024 Billing Provider: MAYE CALIX MD Common Visit Codes: 50139-FJP/OBS DISCH DAY >30min MAYE CALIX MD Aug 18, 2024 11:19
[2024-08-18 11:59] VITALS: BP 106/52; PULSE 60; RESP 16; TEMP 98.7; O2SAT 96
== END 2024-08-18 14:49 | disposition home or self-care (01) | DRG 305 ==
LOC: ER 20:20 → TELE 22:46 → TELE-WESTW 08-15 18:48
PROVIDERS: ADMIT Nurse Practitioner Family; ATTEND Family Medicine
DX: I16.0 Hypertensive urgency (principal); N39.0 Urinary tract infection, site not specified; S00.03XA Contusion of scalp, initial encounter; I10 Essential (primary) hypertension; I48.91 Unspecified atrial fibrillation; E78.00 Pure hypercholesterolemia, unspecified; R29.6 Repeated falls; Z20.822 Contact with and (suspected) exposure to COVID-19; S09.90XA Unspecified injury of head, initial encounter; W18.39XA Other fall on same level, initial encounter; S00.11XA Contusion of right eyelid and periocular area, initial encounter; S00.12XA Contusion of left eyelid and periocular area, initial encounter; E11.9 Type 2 diabetes mellitus without complications; Z79.01 Long term (current) use of anticoagulants; Z86.73 Personal history of transient ischemic attack (TIA), and cerebral infarction without residual deficits; Z90.49 Acquired absence of other specified parts of digestive tract; Y93.89 Activity, other specified; Y92.89 Other specified places as the place of occurrence of the external cause; Y99.8 Other external cause status; Z79.82 Long term (current) use of aspirin; Z82.49 Family history of ischemic heart disease and other diseases of the circulatory system; Z83.3 Family history of diabetes mellitus; Z63.4 Disappearance and death of family member; Z79.02 Long term (current) use of antithrombotics/antiplatelets
CPT/HCPCS: 36415; 70450; 70545; 70551; 71045; 72125; 80053; 81001; 82550; 82962; 83605; 83735; 84484; 85025; 85379; 85610; 85730; 86850; 86900; 86901; 87040; 87086; 87426; 87804; 93005; 95819; 99291; G0378; J1815

== ENCOUNTER → 2024-11-10 | Outpatient (CLI) | payer OTHER, MEDICAID ==
[~2024-11-10] MED LIST changes: +ALEN70TA21 PO; +ALOG1TAB2 PO; +AMLO1TAB23 PO; +APIX5TAB PO; +ASPI325T6 PO; +ATOR-47 PO; -AUG875T PO; +CARV3.1240 PO; +CIPR-173 PO; +CLOP75TA28 PO; +DOCU-209 PO; -DOXY-286 PO; +HYDR-4072 PO; +INSU1INJ19 SC; +LISI2.5T47 PO; +METF-1145 PO; +SERT-206 PO
[2024-11-10 09:21] LABS: Basophils # (auto) 0 10 ^3/uL (0-0.2); Basophils % (auto) 0.5 % (0.0-2.0); Eosinophils # (auto) 0.2 10 ^3/uL (0-0.8); Eosinophils % (auto) 4.9 % (0.0-7.0); Hemoglobin 12.6 g/dL (12.2-16.2); Lymphocytes # (auto) 1.3 10 ^3/uL (0.4-5.4); Lymphocytes % (auto) 25.8 % (10.0-50.0); Mean Corpuscular Hgb Conc. 33.2 g/dL (32.0-36.0); Mean Corpuscular Volume 90.5 fL (80.0-100.0); Monocytes # (auto) 0.4 10 ^3/uL (0-1.3); Monocytes % (auto) 8.8 % (0.0-12.0); Neutrophils # (auto) 3.1 10 ^3/uL (1.6-8.6); Nucleated Red Blood Cells % 0.1 %; Platelet Count (auto) 202 10^3/uL (140-450); Red Cell Distribution Width 15.1 % (11.8-14.3); White Blood Cell 5.1 10^3/uL (4.4-10.8)
[2024-11-10 09:49] LABS: Alanine Aminotransferase 19 U/L (7-40); Anion Gap 9 (5-15); Blood Urea Nitrogen 16 mg/dL (9-23); Calcium 9.7 mg/dL (8.7-10.4); Carbon Dioxide 28 mmol/L (20-31); Chloride 105 mmol/L (98-107); LDL Cholesterol 51 mg/dL (< 100); Potassium 4.2 mmol/L (3.5-5.1); Sodium 142 mmol/L (136-145); Triglycerides 86 mg/dL (< 150)
[2024-11-10 09:50] LABS: Albumin 4.1 g/dL (3.2-4.8); Aspartate Aminotransferase 20 U/L (13-40); Cholesterol 132 mg/dL (< 200); HDL Cholesterol 59 mg/dL (40-59)
[2024-11-10 09:51] LABS: Bilirubin, Total 0.7 mg/dL (0.2-1.0); Total Protein 6.9 g/dL (5.7-8.2)
[2024-11-10 10:31] LABS: Alkaline Phosphatase 132 U/L (46-116); Glucose 142 mg/dL (74-106)
[2024-11-10 10:32] LABS: BUN/Creatinine Ratio 14.2 (10.0-20.0)
== END | disposition home or self-care (01) ==
LOC: LAB 08:10
PROVIDERS: ATTEND Internal Medicine
DX: I10 Essential (primary) hypertension (principal); E11.9 Type 2 diabetes mellitus without complications; Z76.89 Persons encountering health services in other specified circumstances
CPT/HCPCS: 36415; 80053; 80061; 83036; 84439; 84443; 85025

== ENCOUNTER 2024-12-28 10:05 | Emergency (ER) | payer OTHER, MEDICAID ==
[~2024-12-28] VITALS: Ht 149.9 cm; Wt 67.2 kg
[2024-12-28 11:17] VITALS: BP 156/55; PULSE 67; RESP 21; TEMP 97.8; O2SAT 95
--- NOTE | 2024-12-28 11:25 | ED.PDOC ---
Foreign Body HPI Comments A 69 YEAR OLD FEMALE PRESENTS TO THE ED WITH CHIEF COMPLAINT OF SWALLOWING FOREIGN BODY. PATIENT REPORTS THAT SHE HAD ACCIDENTALLY SWALLOWED A FISHBONE 5 MONTHS AGO AND SINCE THEN, SHE HAS HAD DISCOMFORT/PAIN WHEN SWALLOWING. PATIENT DENIES FEVER, SOB, CHEST PAIN, THROAT SWELLING, DIFFICULTY SWALLOWING, NAUSEA, OR VOMITING AND OTHER COMPLAINTS. NO OTHER SYMPTOMS REPORTED AT THIS TIME OF CARE. Chief Complaint: Foreign Body Time Seen by MD: 11:22 Primary Care Provider: ROEL History of Present Illness: Nurses Notes, Medications, Allergies Allergies: Coded Allergies: NO KNOWN ALLERGIES (Unverified , 02/24/22) Home Meds Active Scripts Lidocaine HCl (Mouth-Throat) (Lidocaine HCl Viscous) 2 % Svitlana, 5 ML MT TID, #100 ML Prov:FRANKI DODD 12/28/24 Cephalexin Monohydrate (Cephalexin) 500 Mg Tab, 1 TAB PO TID, #30 TAB Prov:FRANKI DODD 12/28/24 Ciprofloxacin Hcl (Cipro) 500 Mg Tab, 1 TAB PO BID, #20 TAB Prov:MAYE CALIX MD 08/18/24 Reported Medications Hydrocodone-Acetaminophen (Hydrocodone/Acetaminophen 10-325 mg) 1 Tab Tab, 1 TAB PO Q8HPRN PRN for severe pain 08/15/24 Aspirin (Aspirin) 325 Mg Tab, 325 MG PO DAILY, MG 08/15/24 Alendronate Sodium (Fosamax) 70 Mg Tab, 1 TAB PO QWEEKLY, #4 TAB 11 Refills 08/15/24 Sertraline Hcl (Sertraline Hcl) 50 Mg Tab, 50 MG PO DAILY for 30 Days, MG 08/15/24 Docusate Sodium (Dok) 100 Mg Cap, 100 MG PO PRN for FOR CONSTIPATION, CAP 08/15/24 Clopidogrel Bisulfate (Plavix) 75 Mg Tab, 1 TAB PO DAILY, #90 TAB 1 Refill 08/15/24 Apixaban Base (ELIQUIS) 5 Mg Tab, 1 TAB PO BID 08/15/24 Metformin Hydrochloride (Metformin Hcl Er) 500 Mg Tab, 1 TAB PO DAILY 08/15/24 Carvedilol (Carvedilol) 3.125 Mg Tab, 1 TAB PO BID 08/15/24 Insulin Glargine (Basaglar Kwikpen) 100 Unit/Ml Inj, 15 UNIT SC HS 08/15/24 Alogliptin Benzoate (Alogliptin) 25 Mg Tab, 1 TAB PO DAILY 08/15/24 Atorvastatin Calcium (ATORVASTATIN CALCIUM) 80 Mg Tab, 1 TAB PO 08/15/24 Amlodipine Besylate (Amlodipine Besylate) 10 Mg Tab, 1 TAB PO QAM 08/15/24 Lisinopril (Lisinopril) 2.5 Mg Tab, 1 TAB PO DAILY 08/15/24 Information Source: Patient Mode of Arrival: Ambulatory Timing: Months Duration: Since onset Severity: Moderate Ability to handle secretions: Normal Prehospital treatment: None Location: Throat Context: Ingestion Foreign Body: Fishbone Removal: Unknown Associated signs and symptoms: Pain Past Medical History PAST MEDICAL HISTORY: AFIB, CVA, DM, High Lipids, HTN Surgical History: Denies all surgeries 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 Hx Family History Family History: Reviewed,noncontributory to illness Social History Smoker: Non-Smoker Alcohol: Denies ETOH Use Drugs: Denies Drug Use Lives In: Home Constitutional: denies: chills, diaphoresis, fatigue, fever, malaise, sweats, weakness, others EENTM: reports: throat pain; denies: blurred vision, double vision, ear bleeding, ear discharge, ear drainage, ear pain, ear ringing, eye pain, eye redness, hearing loss, mouth pain, mouth swelling, nasal discharge, nose bleeding, nose congestion, nose pain, photophobia, tearing, throat swelling, voice changes, others Respiratory: denies: cough, hemoptysis, orthopnea, SOB at rest, shortness of breath, SOB with excertion, stridor, wheezing, others Cardiovascular: denies: chest pain, dizzy spells, diaphoresis, Dyspnea on exertion, edema, irregular heart beat, left arm pain, lightheadedness, palpitations, PND, syncope, others Gastrointestinal: denies: abdomen distended, abdominal pain, blood streaked bowels, constipated, diarrhea, dysphagia, difficulty swallowing, hematemesis, melena, nausea, poor appetite, poor fluid intake, rectal bleeding, rectal pain, vomiting, others Genitourinary: denies: abnormal vagina bleeding, burning, dyspareunia, dysuria, flank pain, frequency, hematuria, incontinence, pain, , vagina discharge, urgency, others Neurological: denies: dizziness, fainting, headache, left sided numbness, left sided weakness, numbness, paresthesia, pre-existing deficit, right sided numbness, right sided weakness, seizure, speech problems, tingling, tremors, weakness, others Musculoskeletal: denies: back pain, gout, joint pain, joint swelling, muscle pain, muscle stiffness, neck pain, others Integumetry: denies: bruises, change in color, change in hair/nails, dryness, laceration, lesions, lumps, rash, wounds, others Allergic/Immunocompromised: denies: Difficulty Healing, Frequent Infections, Hives, Itching, others Hematologic/Lymphatic: denies: anemia, blood clots, easy bleeding, easy bruising, swollen glands, others Endocrine: denies: excessive hunger, excessive sweating, excessive thirst, excessive urination, flushing, intolerance to cold, intolerance to heat, unexplained weight gain, unexplained weight loss, others Psychiatric: denies: anxiety, bipolar disorder, depression, hopeless, panic disorder, schizophrenia, sleepless, suicidal, others All Other Systems: Reviewed and Negative Physical Exam General Appearance: No Apparent Distress, Normal HEENT: Normal ENT Inspection, PERRL/EOMI, Pharynx Normal (NO FB SEEN. ), TMs Normal Neck: Full Range of Motion, Lymphadenopathy (R), Normal Inspection, Supple, Tender Lateral (WITH UPPER CERVICAL LYMPH NODE TENDERNESS, NO REDNESS AND SWELLING ON RIGHT SIDE NECK WALL. ) Respiratory: Chest Non-Tender, Lungs Clear, No Accessory Muscle Use, No Respiratory Distress, Normal Breath Sounds Cardiovascular: No Edema, No JVD, No Murmur, No Gallop, Normal Peripheral Pulses, Regular Rate/Rhythm Breast Exam: Deferred Gastrointestinal: No Organomegaly, Non Tender, No Pulsatile Mass, Normal Bowel Sounds, Soft Genitalia: Deferred Pelvic: Deferred Rectal: Deferred Extremities: No calf tenderness, Normal capillary refill, Normal inspection, Normal range of motion, Non-tender, No pedal edema Musculoskeletal : Apperance: Normal Neurologic: Alert, heel lining paster II-XII nml as Tested, No Motor Deficits, Normal Affect, Normal Mood, No Sensory Deficits Cerebellar Function: Normal Reflexes: Normal Skin: Dry, Normal Color, Warm Peripheral Pulses: 2+ carotid (R), 2+ carotid (L) Lymphatic: Cervical Adenopathy (R) Was a procedure done? Was a procedure done?: No FB Differential Dx Differential Diagnosis: Esophageal Obstruction, Foreign Body, Other (CERVICAL ADENDITIS ) X-Ray, Labs, Meds, VS Vital Signs Date Time Temp Pulse Resp B/P (MAP) Pulse Ox O2 Delivery O2 Flow Rate FiO2 12/28/24 11:17 97.8 67 21 156/55 (88) 95 97.8 12/28/24 11:17 67 21 95 Room Air 12/28/24 10:19 97.8 67 21 156/55 (88) [address] NECK: FINDINGS: Limited evaluation of the neck soft tissues without IV contrast. No radiopaque foreign body visualized. Nasopharynx, oropharynx, and hypopharynx appear grossly unremarkable. There is thickening and medial positioning of the left arye piglottic fold and dilatation of the left laryngeal ventricle. The right piriform sinus and right vallecula are larger compared to the left. The thyroid gland, submandibular glands, and parotid glands appear symmetric and otherwise within normal limits. There are prominent bilateral level 2 and 3 cervical lymph nodes, with the largest measuring up to 1.8 x 1.0 cm, most likely reactive, with normal reniform shape and fatty cisco. Moderate atherosclerotic calcification of the carotid bifurcations bilaterally. Moderate calcification of the aortic arch. IMPRESSION: 1. No radiopaque foreign body identified. 2. Thickening and medial positioning of the left aryepiglottic fold and dilatation of the left laryngeal ventricle, may be seen with vocal cord paralysis in the appropriate clinical setting. Correlate with clinical findings. 3. Mildly prominent cervical lymph nodes, most likely reactive. Correlate with clinical findings.Additional nonacute 4. Findings as described above. X-Ray, Labs, Meds, VS Comment EXTERNAL MEDICAL RECORDS REVIEWED: [NONE] INDEPENDENT HISTORIANS: [NONE] SOCIAL DETERMINANTS OF HEALTH: [NONE] LABS ORDERED: NONE REVIEWED AND INTERPRETED RESULTS: CT NECK IMAGING ORDERED: CT NECK TREATMENTS ORDERED: NONE PROCEDURES PERFORMED: NONE CRITICAL CARE TIME: NONE I HAVE DISCUSSED THE PATIENT WITH THE ATTENDING PHYSICIAN DR. WHITTAKER AND HE AGREES WITH THE PATIENT'S PLAN OF CARE AND DISPOSITION. BASED ON HISTORY OF PRESENT ILLNESS, AND PHYSICAL EXAM, PATIENT WILL BE DISCHARGED HOME. DISCUSSED PLAN FOR DISCHARGE HOME. SHARED DECISION MAKING: DISCUSSED WITH PATIENT THAT THEIR WORKUP WAS NORMAL. PATIENT INSTRUCTED TO FOLLOW UP WITH PRIMARY CARE PROVIDER IN 1-2 DAYS FOR RE- EVALUATION OF SYMPTOMS. PATIENT VERBALIZES UNDERSTANDING TO RETURN TO ED FOR NEW OR WORSENING SYMPTOMS OR IF FOLLOW UP WITH PCP CANNOT BE OBTAINED. PATIENT FEELS COMFORTABLE GOING HOME AT THIS TIME. ALL QUESTIONS ADDRESSED AT TIME OF DISCHARGE. Images Reviewed?: Images reviewed and evaluated by me Time of 1ST Reevaluation: 13:14 Reevaluation 1ST: Unchanged Patient Education/Counseling: Diagnosis, Treatment, Need For Follow Up Family Education/Counseling: Diagnosis, Treatment, Need For Follow Up Medical Screening: No EMC Exist At This Time Departure 1 Departure Time of Disposition: 13:14 Impression: Primary Impression: Cervical lymphadenopathy Additional Impression: Cervical adenitis Disposition: HOME / SELF CARE / HOMELESS Condition: Stable Additional Instructions: FOLLOW-UP WITH PCP IN 1 TO 2 DAYS FOR ENT REFERRAL. TAKE MEDICATIONS PRESCRIBED. RETURN TO ED FOR ANY NEW OR WORSENING SYMPTOMS. e-Prescriptions Lidocaine HCl (Mouth-Throat) (Lidocaine HCl Viscous) 2 % Svitlana 5 ML MT TID, #100 ML Prov: FRANKI DODD 12/28/24 Cephalexin Monohydrate (Cephalexin) 500 Mg Tab 1 TAB PO TID, #30 TAB Prov: FRANKI DODD 12/28/24 Discharged With: Self, Relative Critical Care Note Critical Care Time?: No Stability Stability form required: No Heart Score Heart Score: Heart Score Response (Comments) Value History N/A 0 EKG N/A 0 Age N/A 0 Risk Factors N/A 0 Troponin N/A 0 Total 0 I personally scribed for FRANKI DODD ([email or web address]) on 12/28/24 at 11:25. Electronically submitted by Angel Ram ([email or web address]). I personally scribed for FRANKI DODD ([email or web address]) on 12/28/24 at 12:26. Electronically submitted by Angel Ram ([email or web address]). I personally scribed for FRANKI DODD ([email or web address]) on 12/28/24 at 12:42. Electronically submitted by Angel Ram ([email or web address]). FRANKI DODD Dec 28, 2024 11:25
--- NOTE | 2024-12-28 12:00 | DVH ---
CLINICAL INFORMATION: Swallowed a fish bone 4 months ago. TECHNIQUE: Axial CT images of the neck soft tissues were obtained IV contrast. Coronal and sagittal reformatted images were obtained, stored, and reviewed. One or more of the following dose reduction t echniques were used: Automated exposure control. Adjustment of mA and/or kV according to patient size . CTDIvol = 23.56 mGy DLP = 665.68 mGy-cm COMPARISON: None FINDINGS: Limited evaluation of the neck soft tissues without IV contrast. No radiopaque foreign body visualize d. Nasopharynx, oropharynx, and hypopharynx appear grossly unremarkable. There is thickening and medi al positioning of the left aryepiglottic fold and dilatation of the left laryngeal ventricle. The rig ht piriform sinus and right vallecula are larger compared to the left. The thyroid gland, submandibul ar glands, and parotid glands appear symmetric and otherwise within normal limits. There are prominen t bilateral level 2 and 3 cervical lymph nodes, with the largest measuring up to 1.8 x 1.0 cm, most l ikely reactive, with normal reniform shape and fatty cisco. Moderate atherosclerotic calcification of the carotid bifurcations bilaterally. Moderate calcification of the aortic arch. IMPRESSION: 1. No radiopaque foreign body identified. 2. Thickening and medial positioning of the left aryepiglottic fold and dilatation of the left laryng eal ventricle, may be seen with vocal cord paralysis in the appropriate clinical setting. Correlate with clinical findings. 3. Mildly prominent cervical lymph nodes, most likely reactive. Correlate with clinical findings.Mitchell tional nonacute 4. Findings as described above.
[2024-12-28] MEDS ORDERED: LIDO2SOL26 MT (12:54)
[2024-12-28] MEDS ORDERED: CEPH500T PO (12:54)
== END 2024-12-28 13:03 | disposition home or self-care (01) ==
LOC: ER 10:05
DX: R59.0 Localized enlarged lymph nodes (principal); I48.91 Unspecified atrial fibrillation; E11.9 Type 2 diabetes mellitus without complications; I10 Essential (primary) hypertension; E78.5 Hyperlipidemia, unspecified; Z86.73 Personal history of transient ischemic attack (TIA), and cerebral infarction without residual deficits; Z79.01 Long term (current) use of anticoagulants; Z79.02 Long term (current) use of antithrombotics/antiplatelets; Z79.82 Long term (current) use of aspirin; Z79.84 Long term (current) use of oral hypoglycemic drugs; Z79.899 Other long term (current) drug therapy
CPT/HCPCS: 70490